=== PATIENT | female | born 1930 | race Caucasian/White ===

== ENCOUNTER 2017-04-12 21:49 | Inpatient (IN) | payer MEDICARE ==
[2017-04-12] MEDS ORDERED: ASPIRIN 81 MG PO STA (22:29)
[2017-04-12 22:47] LABS: Basophils % (A) 0 %; CH 29.8; CHCM 33.7; Eosinophils % (A) 0 %; HCT 35.1 % (34.0-46.0); HDW 2.27; HGB 11.7 gm/dL (11.4-16.0); Luc # (Auto) 0.28; Luc % (Auto) 3; Lymphocytes # (A) 1.4 k/uL (1.0-4.8); Lymphocytes % (A) 16 %; MCH 29.6 pg (25.0-35.0); MCHC 33.4 g/dL (31.0-37.0); MCV 88.8 fL (80.0-100.0); Mean Platelet Volume 8.2; Monocytes # (A) 0.6 k/uL (0-1.0); Monocytes % (A) 7 %; Neutrophils # (A) 6.6 k/uL (1.3-7.7); Neutrophils % (A) 74 %; RBC 3.95 m/uL (3.80-5.40); RDW 15.8 % (11.5-15.5)
--- NOTE | 2017-04-12 22:49 | ED ---
General Adult HPI - General Chief complaint: Chest Pain Stated complaint: chest pain Time Seen by Provider: 04/12/17 22:04 Source: patient, family, RN notes reviewed, old records reviewed Mode of arrival: ambulatory Limitations: no limitations - History of Present Illness Initial comments: 87-year-old female with history of hypertension, A. fib, CAD presents with anterior chest pain. Pain does not radiate, however she does feel some intermittent pain in her bilateral shoulders. Patient has developed intermittent substernal chest tightness and pain over the past several days. She also reports decreased exercise tolerance and some shortness of breath. Patient was seen by her prosthetist on Saturday of this week, according to the patient at that time there was discussion of the possibility for repeat heart catheterization. She denies vomiting, admits she did have some nausea with this episode. Her pain is currently resolved. Denies diaphoresis. Reports fatigue which is been progressing for several weeks. Patient took 80 mg of aspirin and 3 nitroglycerin at home. Nitroglycerin was approximately 2 hours prior to arrival, she reports minimal relief with nitroglycerin. - Related Data Home Medications Medication Instructions Recorded Confirmed Artificial Tears-Hypromellose 1 drops BOTH EYES TID PRN 04/12/17 04/12/17 [Artificial Tear Drops] Aspirin EC [Ecotrin Low Dose] 81 mg PO DAILY 04/12/17 04/12/17 Atorvastatin [Lipitor] 20 mg PO DAILY 04/12/17 04/12/17 Benazepril HCl 40 mg PO DAILY 04/12/17 04/12/17 Calcium Carbonate [Calcium] 600 mg PO BID 04/12/17 04/12/17 Cholecalciferol [Vitamin D3] 1,000 unit PO BID 04/12/17 04/12/17 Edoxaban Tosylate [Savaysa] 30 mg PO DAILY 04/12/17 04/12/17 L.acidoph,Paracasei, B.lactis 1 cap PO DAILY 04/12/17 04/12/17 [Probiotic] Loperamide [Imodium] 2 mg PO QID PRN 04/12/17 04/12/17 Magnesium Oxide [Mag-Ox] 500 mg PO DAILY 04/12/17 04/12/17 Multivitamins, Thera [Multivitamin 1 tab PO DAILY 04/12/17 04/12/17 (formulary)] Nitroglycerin Sl Tabs [Nitrostat] 0.4 mg SUBLINGUAL Q5M PRN 04/12/17 04/12/17 amLODIPine [Norvasc] 5 mg PO DAILY 04/12/17 04/12/17 Allergies Allergy/AdvReac Type Severity Reaction Status Date / Time Penicillins AdvReac HEADACHES Verified 04/12/17 22:36 Review of Systems ROS Statement: Those systems with pertinent positive or pertinent negative responses have been documented in the HPI. ROS Other: All systems not noted in ROS Statement are negative. Past Medical History Past Medical History: Atrial Fibrillation, Coronary Artery Disease (CAD), Hypertension Past Surgical History: Heart Catheterization With Stent, Hernia Repair, Hysterectomy Past Psychological History: No Psychological Hx Reported Smoking Status: Never smoker Past Alcohol Use History: None Reported Past Drug Use History: None Reported General Exam Limitations: no limitations General appearance: alert, in no apparent distress Head exam: Present: atraumatic, normocephalic Eye exam: Present: normal appearance, PERRL ENT exam: Present: normal exam, mucous membranes moist Neck exam: Present: normal inspection Respiratory exam: Present: normal lung sounds bilaterally. Absent: respiratory distress, wheezes, rales Cardiovascular Exam: Present: regular rate, irregular rhythm GI/Abdominal exam: Present: soft. Absent: distended, tenderness Extremities exam: Present: normal inspection, normal capillary refill. Absent: pedal edema Neurological exam: Present: alert, oriented X3, CN II-XII intact. Absent: motor sensory deficit Psychiatric exam: Present: normal affect, normal mood Skin exam: Present: warm, dry, intact. Absent: cyanosis, diaphoretic Course Vital Signs 04/12/17 04/13/17 04/13/17 21:55 00:10 00:12 Temperature 98.3 F 98.4 F Pulse Rate 84 80 90 Respiratory 20 18 18 Rate Blood Pressure 140/73 118/64 121/58 O2 Sat by Pulse 95 92 L 94 L Oximetry EKG Findings - EKG Comments: EKG Findings:: EKG atrial fibrillation, right bundle branch block, left posterior fascicular block, ventricular rate 99, QRS duration 110, QTC [address] segment elevation Medical Decision Making - Medical Decision Making 87-year-old female presenting with chief complaint of chest pain over the past several days. She is chest pain-free in the emergency department. She does have a history of CAD status post stenting. She also reports worsening exertional dyspnea. Chest x-ray was obtained, shows concern for lower lobe pneumonia. Patient states she has been dealing with pneumonia for the past several months. She is afebrile, no elevated white blood cell count. She does have bilateral pleural effusions. I have concern that this may be new onset heart failure. EKG shows atrial fibrillation with right bundle-branch block as well as left posterior fascicular block, there is T-wave inversion in leads 3 and aVF. No recent old EKG for comparison is available. Patient is given aspirin and Lasix in the emergency department. She remains asymptomatic during the time of my evaluation. Patient states she did have a heart cath in October, no intervention done at that time. This was done at outside hospital. Diagnosis: Chest pain, concern for new onset heart failure, bilateral pleural effusions - Lab Data Result diagrams: 04/12/17 22:14 04/12/17 22:14 Lab Results 04/12/17 04/12/17 04/12/17 Range/Units 22:14 22:14 22:14 WBC 9.0 (3.8-10.6) k/uL RBC 3.95 (3.80-5.40) m/uL Hgb 11.7 (11.4-16.0) gm/dL Hct 35.1 (34.0-46.0) % MCV 88.8 (80.0-100.0) fL MCH 29.6 (25.0-35.0) pg MCHC 33.4 (31.0-37.0) g/dL RDW 15.8 H (11.5-15.5) % Plt Count 225 (150-450) k/uL Neutrophils % 74 % Lymphocytes % 16 % Monocytes % 7 % Eosinophils % 0 % Basophils % 0 % Neutrophils # 6.6 (1.3-7.7) k/uL Lymphocytes # 1.4 (1.0-4.8) k/uL Monocytes # 0.6 (0-1.0) k/uL Eosinophils # 0.0 (0-0.7) k/uL Basophils # 0.0 (0-0.2) k/uL PT (9.0-12.0) sec INR (<1.2) APTT (22.0-30.0) sec Sodium 136 L (137-145) mmol/L Potassium 4.8 (3.5-5.1) mmol/L Chloride 103 (98-107) mmol/L Carbon Dioxide 24 (22-30) mmol/L Anion Gap 9 mmol/L BUN 18 H (7-17) mg/dL Creatinine 0.87 (0.52-1.04) mg/dL Est GFR (MDRD) Af Amer >60 (>60 ml/min/1.73 sqM) Est GFR (MDRD) Non-Af >60 (>60 ml/min/1.73 sqM) Glucose 100 H (74-99) mg/dL Calcium 8.8 (8.4-10.2) mg/dL Magnesium 1.9 (1.6-2.3) mg/dL Total Bilirubin 0.5 (0.2-1.3) mg/dL AST 37 H (14-36) U/L ALT 31 (9-52) U/L Alkaline Phosphatase 52 (38-126) U/L Total Creatine Kinase 37 (30-135) U/L CK-MB (CK-2) 0.5 (0.0-2.4) ng/mL CK-MB (CK-2) Rel Index 1.4 Troponin I <0.012 (0.000-0.034) ng/mL NT-Pro-B Natriuret Pep pg/mL Total Protein 6.8 (6.3-8.2) g/dL Albumin 3.6 (3.5-5.0) g/dL 04/12/17 04/12/17 Range/Units 22:14 22:14 WBC (3.8-10.6) k/uL RBC (3.80-5.40) m/uL Hgb (11.4-16.0) gm/dL Hct (34.0-46.0) % MCV (80.0-100.0) fL MCH (25.0-35.0) pg MCHC (31.0-37.0) g/dL RDW (11.5-15.5) % Plt Count (150-450) k/uL Neutrophils % % Lymphocytes % % Monocytes % % Eosinophils % % Basophils % % Neutrophils # (1.3-7.7) k/uL Lymphocytes # (1.0-4.8) k/uL Monocytes # (0-1.0) k/uL Eosinophils # (0-0.7) k/uL Basophils # (0-0.2) k/uL PT 13.7 H (9.0-12.0) sec INR 1.4 H (<1.2) APTT 24.4 (22.0-30.0) sec Sodium (137-145) mmol/L Potassium (3.5-5.1) mmol/L Chloride (98-107) mmol/L Carbon Dioxide (22-30) mmol/L Anion Gap mmol/L BUN (7-17) mg/dL Creatinine (0.52-1.04) mg/dL Est GFR (MDRD) Af Amer (>60 ml/min/1.73 sqM) Est GFR (MDRD) Non-Af (>60 ml/min/1.73 sqM) Glucose (74-99) mg/dL Calcium (8.4-10.2) mg/dL Magnesium (1.6-2.3) mg/dL Total Bilirubin (0.2-1.3) mg/dL AST (14-36) U/L ALT (9-52) U/L Alkaline Phosphatase (38-126) U/L Total Creatine Kinase (30-135) U/L CK-MB (CK-2) (0.0-2.4) ng/mL CK-MB (CK-2) Rel Index Troponin I (0.000-0.034) ng/mL NT-Pro-B Natriuret Pep 1380 pg/mL Total Protein (6.3-8.2) g/dL Albumin (3.5-5.0) g/dL Disposition Clinical Impression: Chest pain, New onset of congestive heart failure Disposition: ADMITTED IP TO THIS [facility] Condition: Stable Referrals: Bertrand Giron MD [Primary Care Provider] - 1-2 days Decision to Admit Reason: Admit from EC Decision Date: 04/13/17 Decision Time: 00:32
[2017-04-12 22:58] LABS: Partial Thromboplastin Time 24.4 sec (22.0-30.0)
[2017-04-12 22:59] LABS: ALT 31 U/L (9-52); AST 37 U/L (14-36); Alkaline Phosphatase 52 U/L (38-126); Anion Gap 9 mmol/L; Blood Urea Nitrogen 18 mg/dL (7-17); Calcium 8.8 mg/dL (8.4-10.2); Carbon Dioxide 24 mmol/L (22-30); Chloride 103 mmol/L (98-107); Glucose 100 mg/dL (74-99); Magnesium 1.9 mg/dL (1.6-2.3); Non-African American GFR(MDRD) >60 (>60 ml/min/1.73 sqM); Potassium 4.8 mmol/L (3.5-5.1); Sodium 136 mmol/L (137-145); Total Bilirubin 0.5 mg/dL (0.2-1.3); Total Protein 6.8 g/dL (6.3-8.2)
[2017-04-12 23:07] LABS: Creatine Kinase 37 U/L (30-135)
[2017-04-12 23:08] LABS: INR 1.4 (<1.2); Prothrombin Time 13.7 sec (9.0-12.0)
--- NOTE | 2017-04-12 23:10 | XR ---
EXAM: XR Chest, 2 Views CLINICAL HISTORY: Reason: Chest Pain TECHNIQUE: Frontal and lateral views of the chest. COMPARISON: No relevant prior studies available. FINDINGS: Lungs: Patchy left base infiltrates. Pleural space: Possible small left pleural effusion. No pneumothorax. Heart: Mild cardiomegaly. Mediastinum: Unremarkable. Bones/joints: Rightward curvature of the thoracic spine. IMPRESSION: Patchy left base infiltrates may be due to bronchopneumonia or subsegmental atelectasis. Correlate clinically. Small left pleural effusion not excluded.
[2017-04-12 23:21] LABS: Creatine Kinase MB 0.5 ng/mL (0.0-2.4); Troponin I <0.012 ng/mL (0.000-0.034)
[2017-04-12] MEDS ORDERED: FUROSEMIDE 10 MG/ML 4 ML VIAL IV ONE (23:59)
[2017-04-13 01:54] VITALS: BMI 23.6
[2017-04-13 04:53] LABS: Creatine Kinase MB 0.4 ng/mL (0.0-2.4); Troponin I <0.012 ng/mL (0.000-0.034)
[2017-04-13] MEDS ORDERED: RX INFO: IV CONTRAST WAS GIVEN 1 EACH MISC MISCELLANE PRN (08:58)
[2017-04-13] MEDS: FUROSEMIDE 40 MG TAB PO SCH ×2 (09:41→20:14)
[2017-04-13 10:31] LABS: Creatine Kinase MB 0.4 ng/mL (0.0-2.4); Troponin I <0.012 ng/mL (0.000-0.034)
--- NOTE | 2017-04-13 10:35 | HP ---
HISTORY AND PHYSICAL CHIEF COMPLAINT: Chest tightness. HISTORY OF PRESENT ILLNESS: This is an 87-year-old female with past medical history significant for coronary artery disease, stent placement in 2008, presents to the hospital with chest tightness. The patient stated that chest tightness has been happening for the last 2 months and patient noticed some shortness of breath with excessive activities as patient is a very active at home, independent in all her daily activities. Patient denied any releasing factors. Denied any relation between pain and positions or taking deep breath. Patient denied any radiation to the left neck, left arm or left jaw. Patient stated that the pain is constant, got worse in the last 2 days and especially with the shortness of breath on excessive activities and stated that she still can do all her daily activity without having shortness of breath and less likely when she exerts herself. Patient denied any recent change in her medication, but stated that since October, she was diagnosed with pneumonia 3 times, was treated with prolonged course of antibiotics. Most recent was 3 weeks ago. Patient had the significant improvement according to her story and stated that she her cough has improved and has been coughing less, still yellow phlegm, but patient thinks that her energy level went back to the normal after her prolonged course of antibiotics. Patient denied any weight loss, night sweats or low-grade fever. Said that she has been very healthy. Compliance with her medication and doctor's followup and denied tobacco, alcohol, or drug abuse. ALLERGIES: PENICILLIN with headache. HOME MEDICATION: 1. Aspirin daily. 2. Artificial Tears as needed. 3. Lipitor 20 mg daily. 4. Benazepril 40 mg daily. 5. Calcium twice daily. 6. Vitamin D twice daily. 7. Probiotic daily. 8. Loperamide as needed for diarrhea. 9. Mag oxide. 10.Multivitamin. 11.Nitroglycerin as needed. 12.Amlodipine 5 mg daily. REVIEW OF SYSTEMS: All 14 systems reviewed and negative, except as above. PAST MEDICAL AND SURGICAL HISTORY: 1. Coronary artery disease, status post stent placement 2008. 2. Hypertension. 3. Hyperlipidemia. 4. Vitamin D deficiency. 5. Cardiac catheterization. 6. Hernia repair. 7. Hysterectomy. SOCIAL HISTORY: Denies tobacco, alcohol, or drug abuse. Stated that she is independent, lives in own trailer and stated that she has been very active, working outdoors. PHYSICAL EXAM: Vital signs 98.4, 90, 18, 121/58, and saturation of 94% on room air. GENERAL: In her stated age, no acute distress. HEENT: Atraumatic, normocephalic, PERRLA. LUNGS: Clear to auscultation bilaterally. HEART: Normal S1, S2. Next. ABDOMEN: Soft, nontender. Bowel sounds in all 4 quadrants. LOWER EXTREMITY: No edema. PSYCH: Alert, oriented x3. SKIN: No rash. IMAGING/LABS: CBC revealed normal finding. Chemistry revealed sodium 136, normal otherwise. Troponin was negative x3. Liver function tests within acceptable range. INR slightly elevated at 1.4, normal PTT. BNP was elevated at 1380. ASSESSMENT AND PLAN: 1. Chest tightness, seems to be mixed etiology, which can include but not limited. 2. History of coronary artery disease associated with most recent worsening and shortness of breath and congestive heart failure exacerbation complicated with recent pneumonia and recurrent pneumonia x3 for the last 6 months. I would like to identify each problem and keep patient is the hospital, start patient on a gentle dose of diuretics. Continue cardioprotective medication. Consider starting patient on a beta angie per Cardiology recommendation on outpatient basis. Also, I would like to obtain a CT scan of the chest to rule out any underlying malignancy, given the fact of the last 3 episodes of pneumonia in 5 months. I would like to optimize her medical management and consider discharging patient once the workup is done and evaluated by Cardiology, who was consulted by the ER physician. Also, I would like to obtain a 2D echo to rule out any wall motion abnormality. 3. Hypertension, seems to be under fair control. Continue her home medication. 4. Vitamin D deficiency. Continue with the current supplement. 5. Recurrent pneumonia. Management as above. 6. Discharge planning based on clinical progress. MMODL / IJN: [id number] /
--- NOTE | 2017-04-13 11:04 | P.CRDCN ---
History of Present Illness Consult date: 04/13/17 Chief complaint: Chest discomfort History of present illness: This is a pleasant 87-year-old female patient who sees Dr. Bryant in as an outpatient with a past medical history significant for CAD with prior stenting with unknown details at this point, chronic atrial fibrillation, hypertension, dyslipidemia, presented to the hospital complaining of chest discomfort. The patient was in her usual state of health until about 3 days ago when she started experiencing ongoing chest discomfort. Its a pressure across the chest without any radiation and without any associated symptoms. She tried nitroglycerin yesterday without improvement and then she was referred to come to the emergency room. The EKG showed atrial fibrillation. The cardiac enzymes were checked and came in to be unremarkable. The patient just underwent a computed tomography scan of the chest. We will follow-up with that. Past Medical History Past Medical History: Atrial Fibrillation, Coronary Artery Disease (CAD), Hypertension History of Any Multi-Drug Resistant Organisms: None Reported Past Surgical History: Heart Catheterization With Stent, Hernia Repair, Hysterectomy Past Anesthesia/Blood Transfusion Reactions: No Reported Reaction Date of Last Stent Placement:: 2007 Past Psychological History: No Psychological Hx Reported Smoking Status: Never smoker Past Alcohol Use History: None Reported Past Drug Use History: None Reported - Past Family History Mother Family Medical History: Congestive Heart Failure (CHF) Father Family Medical History: Cancer Additional Family Medical History / Comment(s): prostate cancer Medications and Allergies Home Medications Medication Instructions Recorded Confirmed Type Artificial Tears-Hypromellose 1 drops BOTH EYES TID PRN 04/12/17 04/12/17 History [Artificial Tear Drops] Aspirin EC [Ecotrin Low Dose] 81 mg PO DAILY 04/12/17 04/12/17 History Atorvastatin [Lipitor] 20 mg PO DAILY 04/12/17 04/12/17 History Benazepril HCl 40 mg PO DAILY 04/12/17 04/12/17 History Calcium Carbonate [Calcium] 600 mg PO BID 04/12/17 04/12/17 History Cholecalciferol [Vitamin D3] 1,000 unit PO BID 04/12/17 04/12/17 History Edoxaban Tosylate [Savaysa] 30 mg PO DAILY 04/12/17 04/12/17 History L.acidoph,Paracasei, B.lactis 1 cap PO DAILY 04/12/17 04/12/17 History [Probiotic] Loperamide [Imodium] 2 mg PO QID PRN 04/12/17 04/12/17 History Magnesium Oxide [Mag-Ox] 500 mg PO DAILY 04/12/17 04/12/17 History Multivitamins, Thera [Multivitamin 1 tab PO DAILY 04/12/17 04/12/17 History (formulary)] Nitroglycerin Sl Tabs [Nitrostat] 0.4 mg SUBLINGUAL Q5M PRN 04/12/17 04/12/17 History amLODIPine [Norvasc] 5 mg PO DAILY 04/12/17 04/12/17 History Allergies Allergy/AdvReac Type Severity Reaction Status Date / Time Penicillins AdvReac HEADACHES Verified 04/12/17 22:36 Physical Exam Vitals: Vital Signs Temp Pulse Pulse Resp BP BP Pulse Ox 04/13/17 08:54 94 L 04/13/17 08:00 98.1 F 74 16 115/55 94 L 04/13/17 04:00 96.8 F L 80 18 114/60 97 04/13/17 01:45 97.6 F 90 18 119/68 94 L 04/13/17 01:20 97.6 F 90 18 119/68 95 04/13/17 00:12 98.4 F 90 18 121/58 94 L 04/13/17 00:10 80 18 118/64 92 L 04/12/17 21:55 98.3 F 84 20 140/73 95 Intake and Output 04/12/17 04/13/17 04/13/17 22:59 06:59 14:59 Output Total 300 Balance -300 Output: Urine 300 Other: Weight 58.967 kg 62.6 kg 62.6 kg Patient Weight 04/14/17 06:59 Weight 62.6 kg - Constitutional General appearance: no acute distress - Respiratory Respiratory: bilateral: CTA - Cardiovascular Rhythm: irregularly irregular Heart sounds: normal: S1, S2 Abnormal Heart Sounds: systolic murmur Results 04/12/17 22:14 04/12/17 22:14 Cardiac Enzymes 04/12/17 04/12/17 04/13/17 Range/Units 22:14 22:14 03:41 AST 37 H (14-36) U/L CK-MB (CK-2) 0.5 0.4 (0.0-2.4) ng/mL Troponin I <0.012 <0.012 (0.000-0.034) ng/mL 04/13/17 Range/Units 09:42 AST (14-36) U/L CK-MB (CK-2) 0.4 (0.0-2.4) ng/mL Troponin I <0.012 (0.000-0.034) ng/mL Coagulation 04/12/17 Range/Units 22:14 PT 13.7 H (9.0-12.0) sec APTT 24.4 (22.0-30.0) sec CBC 04/12/17 Range/Units 22:14 WBC 9.0 (3.8-10.6) k/uL RBC 3.95 (3.80-5.40) m/uL Hgb 11.7 (11.4-16.0) gm/dL Hct 35.1 (34.0-46.0) % Plt Count 225 (150-450) k/uL Comprehensive Metabolic Panel 04/12/17 Range/Units 22:14 Sodium 136 L (137-145) mmol/L Potassium 4.8 (3.5-5.1) mmol/L Chloride 103 (98-107) mmol/L Carbon Dioxide 24 (22-30) mmol/L BUN 18 H (7-17) mg/dL Creatinine 0.87 (0.52-1.04) mg/dL Glucose 100 H (74-99) mg/dL Calcium 8.8 (8.4-10.2) mg/dL AST 37 H (14-36) U/L ALT 31 (9-52) U/L Alkaline Phosphatase 52 (38-126) U/L Total Protein 6.8 (6.3-8.2) g/dL Albumin 3.6 (3.5-5.0) g/dL Current Medications Generic Name Dose Route Start Last Admin Trade Name Freq PRN Reason Stop Dose Admin Aspirin 325 mg 04/14/17 00:28 04/13/17 09:42 Aspirin PO 325 mg DAILY IGGY Administration Furosemide 20 mg 04/13/17 09:00 04/13/17 09:41 Lasix PO 20 mg Q12HR IGGY Administration Miscellaneous Information 1 each 04/13/17 08:58 Rx Info: Iv Contrast Was Given MISCELLANE 04/15/17 08:59 DAILY PRN Per Protocol Intake and Output 04/12/17 04/13/17 04/13/17 22:59 06:59 14:59 Output Total 300 Balance -300 Output: Urine 300 Other: Weight 58.967 kg 62.6 kg 62.6 kg Patient Weight 04/14/17 06:59 Weight 62.6 kg 04/12/17 22:14 04/12/17 22:14 Assessment and Plan Plan: This is a pleasant 87-year-old female patient with known CAD and prior stenting as well as chronic A. fib and multiple comorbid conditions was admitted to the hospital with chest discomfort. The patient was ruled out for acute coronary event at this point. We will rule out any vascular/pulmonary etiology with a computed tomography scan which was performed and we don't have the results on at this point. If the patient continues to have chest discomfort I would consider proceeding with heart catheterization to rule out any severe underlying CAD. I would consider that after we get the results of the CAT scan
--- NOTE | 2017-04-13 11:57 | CT ---
EXAMINATION TYPE: CT chest w con DATE OF EXAM: 04/13/2017 COMPARISON: NONE HISTORY: Recurrent pneumonia CT DLP: 262.80 mGycm Automated exposure control for dose reduction was used. CONTRAST: CT scan of the chest is performed with IV Contrast, patient injected with 100 ml mL of Omnipaque 300. FINDINGS: LUNGS: There is bilateral apical scarring. There is bibasilar airspace disease, worse on the left jumana n the right. There is a small left-sided effusion. There is no significant axillary, internal mammary, mediastinal or hilar adenopathy. The heart is grossly enlarged. There is no pericardial fluid. There is a moderate-sized hiatal hernia. There is a simple appearing, 1.3 cm cyst in the upper pole of the left kidney and a 1.4 cm, simple ap pearing cyst in the mid polar region of the left kidney. Visualized portions of the upper abdomen are otherwise unremarkable. There is a dextroscoliosis present. There is mild hypertrophic spondylosis. IMPRESSION: 1. BIBASILAR AIRSPACE DISEASE, WORSE IN THE LEFT THAN THE RIGHT. 2. SMALL LEFT EFFUSION. 3. MULTICHAMBER CARDIAC ENLARGEMENT. 4. SIMPLE APPEARING, LEFT RENAL CYST. 5. DEXTROSCOLIOSIS. 6. MILD DEGENERATIVE CHANGE IN THE SPINE.
--- NOTE | 2017-04-13 13:35 | ECHOF ---
Referral Reason:Heart Failure MEASUREMENTS -------- HEIGHT: 162.6 cm WEIGHT: 59.0 kg BP: 114/60 RVIDd: 2.4 cm (< 3.3) IVSd: 1.1 cm (0.6 - 1.1) LVIDd: 4.1 cm (3.9 - 5.3) LVPWd: 1.1 cm (0.6 - 1.1) IVSs: 1.5 cm LVIDs: 2.9 cm LVPWs: 1.3 cm LAESV Index (A-L): 52.30 ml/m Ao Diam: 3.2 cm (2.0 - 3.7) AV Cusp: 1.8 cm (1.5 - 2.6) LA Diam: 4.3 cm (2.7 - 3.8) MV EXCURSION: 13.991 mm (> 18.000) MV EF SLOPE: 52 mm/s (70 - 150) EPSS: 0.9 cm MV E Logan: 0.98 m/s MV DecT: 256 ms MV A Logan: 0.00 m/s MV E/A Ratio: 958.74 AR PHT: 667 ms RAP: 5.00 mmHg RVSP: 30.28 mmHg FINDINGS -------- Atrial fibrillation. This was a technically adequate study. The left ventricular size is normal. Left ventricular wall thickness is normal. Overall left ventricular systolic function is normal with, an EF between 60 - 65 %. The right ventricle is normal in size and function. LA is severely dilated >40 ml/m2 The right atrium is moderately enlarged. Aortic valve is trileaflet and is mildly thickened. There is mild aortic regurgitation. There is mild aortic stenosis present. The mitral valve leaflets are mildly thickened. [id number] mitral regurgitation is present. Trace tricuspid regurgitation present. Right ventricular systolic pressure is normal at < 35 mmHg. There is no evidence of pulmonary hypertension. Trace/mild (physiologic) pulmonic regurgitation. The aortic root size is normal. The IVC is dilated with normal collapse. The pericardium is normal. There is no pericardial effusion. CONCLUSIONS -------- 1. Atrial fibrillation. 2. The mitral valve leaflets are mildly thickened. 3. [id number] mitral regurgitation is present. 4. Trace tricuspid regurgitation present. 5. Right ventricular systolic pressure is normal at < 35 mmHg. 6. There is no evidence of pulmonary hypertension. 7. Trace/mild (physiologic) pulmonic regurgitation. 8. The aortic root size is normal. 9. The IVC is dilated with normal collapse. 10. This was a technically adequate study. 11. The left ventricular size is normal. 12. Overall left ventricular systolic function is normal with, an EF between 60 - 65 %. 13. LA is severely dilated >40 ml/m2 14. The right atrium is moderately enlarged. 15. Aortic valve is trileaflet and is mildly thickened. 16. There is mild aortic regurgitation. 17. There is mild aortic stenosis present. SECONDARY HISTORY TEACHER: Mainor Shin RDCS
[2017-04-13] MEDS ORDERED: LOPERAMIDE 2 MG CAP PO PRN (17:30)
[2017-04-13] MEDS ORDERED: ARTIFICIAL TEARS-HYPROMELLOSE DROPS 15 ML BTL BOTH EYES PRN (17:30)
[2017-04-13] MEDS: CHOLECALCIFEROL 1,000 UNIT TAB PO SCH (18:32)
[2017-04-13] MEDS: amLODIPine 5 MG TAB PO SCH (18:32)
[2017-04-13] MEDS: EDOXABAN TOSYLATE 30 MG TABLET PO SCH (18:32)
[2017-04-13] MEDS: CALCIUM CARBONATE 500 MG CHEWABLE PO SCH (18:34)
[2017-04-14] MEDS ORDERED: ASPIRIN 325 MG TAB PO SCH (00:28)
[2017-04-14 01:44] VITALS: RESP 18
[2017-04-14 04:21] VITALS: TEMP 97.1
[2017-04-14] MEDS ORDERED: MAGNESIUM OXIDE 400 MG TAB PO SCH (09:00)
[2017-04-14] MEDS ORDERED: ATORVASTATIN 20 MG TAB PO SCH (09:00)
[2017-04-14] MEDS ORDERED: LISINOPRIL 20 MG TAB PO SCH (09:00)
[2017-04-14] MEDS ORDERED: LACTOBACILLUS ACIDOPH & BULGAR 1 EACH PACKET PO SCH (09:00)
[2017-04-14] MEDS ORDERED: ASPIRIN 81 MG PO SCH (09:00)
[2017-04-14] MEDS: CALCIUM CARBONATE 500 MG CHEWABLE PO SCH (09:27)
[2017-04-14] MEDS: amLODIPine 5 MG TAB PO SCH (09:27)
[2017-04-14] MEDS: CHOLECALCIFEROL 1,000 UNIT TAB PO SCH (09:27)
[2017-04-14] MEDS: EDOXABAN TOSYLATE 30 MG TABLET PO SCH (09:29)
[2017-04-14] MEDS: FUROSEMIDE 40 MG TAB PO SCH (09:29)
[2017-04-14 09:41] VITALS: BP 120/56; PULSE 86
--- NOTE | 2017-04-14 11:45 | P.PN ---
Progress Note - Text This is a pleasant 87-year-old female patient who sees Dr. Kang in as an outpatient with a past medical history significant for CAD with prior stenting with unknown details at this point, chronic atrial fibrillation, hypertension, dyslipidemia, presented to the hospital complaining of chest discomfort. The patient was in her usual state of health until about 3 days ago when she started experiencing ongoing chest discomfort. Its a pressure across the chest without any radiation and without any associated symptoms. She tried nitroglycerin yesterday without improvement and then she was referred to come to the emergency room. The EKG showed atrial fibrillation. The cardiac enzymes were checked and came in to be unremarkable. Since admission the patient has been pain free. She underwent a heart catheterization in December 2016 and that showed only intermediate coronary artery disease. From the cardiovascular standpoint of view, the patient can be discharged home
--- NOTE | 2017-04-14 11:51 | DS ---
DISCHARGE SUMMARY ADMISSION DIAGNOSES: 1. Chest tightness. 2. Recurrent pneumonia. 3. Coronary artery disease. 4. Hypertension. 5. Vitamin D deficiency. DISCHARGE DIAGNOSES: 1. Chest tightness, improved, likely related to spasm. 2. Recurrent pneumonia. CT scan was done and showed minimal finding not significant for any malignancy or any ongoing pathology. HOSPITAL COURSE: This is an 87-year-old female with past medical history significant for coronary artery disease and stent placement 9 years ago, presents to the hospital with chest tightness. Initial troponin and EKG showed normal finding. The patient was admitted for observation and cardiology evaluation, who noted that last cardiac catheterization was done in December and showed minimum disease. The patient felt stable from the cardiac standpoint, but given the fact of recurrent pneumonia CT scan with contrast was ordered, which showed some atelectasis and chronic changes indicating any reason for her recurrent pneumonia. Patient asked to follow up with her primary care physician closely and felt stable from the medical standpoint. Patient agreeable to the current treatment plan and plan discussed with Dr. Sanabria, who agreed to the current discharge process. The patient was discharged in stable condition. Discharge process took 35 minutes. STARR / LUCHON: [id number] /
[2017-04-14] MEDS ORDERED: MULTIVITAMINS, THERA 1 EACH TAB PO SCH (12:00)
== END 2017-04-14 11:48 | disposition home or self-care (01) | DRG 313 ==
LOC: EC 21:49 → 6SEL 04-13 00:26
PROVIDERS: ADMIT Internal Medicine; ATTEND Internal Medicine
DX: R07.89 Other chest pain (principal); I25.10 Atherosclerotic heart disease of native coronary artery without angina pectoris; J90 Pleural effusion, not elsewhere classified; I50.9 Heart failure, unspecified; I48.2 Chronic atrial fibrillation; I11.0 Hypertensive heart disease with heart failure; J98.11 Atelectasis; I45.10 Unspecified right bundle-branch block; E78.5 Hyperlipidemia, unspecified; E55.9 Vitamin D deficiency, unspecified; Z87.01 Personal history of pneumonia (recurrent); Z95.5 Presence of coronary angioplasty implant and graft; Z79.82 Long term (current) use of aspirin; Z79.899 Other long term (current) drug therapy; Z82.49 Family history of ischemic heart disease and other diseases of the circulatory system; Z88.0 Allergy status to penicillin; Z90.710 Acquired absence of both cervix and uterus; Z87.19 Personal history of other diseases of the digestive system
CPT/HCPCS: 36415; 71020; 71260; 80053; 82550; 82553; 83735; 83880; 84484; 85025; 85610; 85730; 93005; 93306; 94760; 96374; 99285

== ENCOUNTER 2018-10-06 12:07 | Observation (INO) | payer MEDICARE ==
[2018-10-06] MEDS ORDERED: SODIUM CHLORIDE 0.9% 1,000 ML IV STA (12:46)
--- NOTE | 2018-10-06 12:49 | ED ---
SOB HPI - General Chief Complaint: Shortness of Breath Stated Complaint: SOB, LETHARGY Time Seen by Provider: 10/06/18 12:30 Source: patient, RN notes reviewed Mode of arrival: ambulatory Limitations: no limitations - History of Present Illness Initial Comments: This 88-year-old female with a history of a cardiac stents about 10 years ago states that recently over last week or so she's had shortness of breath exertional of any type and seems to be getting progressively worse he has a small spot chest pain and right anterior mid chest just lateral to the sternum that is reproducible she pushes on it. No cough no fevers chills nausea vomiting sweats or other symptoms. MD Complaint: shortness of breath, chest pain - Related Data Home Medications Medication Instructions Recorded Confirmed Artificial Tears-Hypromellose 1 drops BOTH EYES TID PRN 04/12/17 10/06/18 [Artificial Tear Drops] Aspirin EC [Ecotrin Low Dose] 81 mg PO DAILY 04/12/17 10/06/18 Atorvastatin [Lipitor] 20 mg PO DAILY 04/12/17 10/06/18 Benazepril HCl 40 mg PO DAILY 04/12/17 10/06/18 Calcium Carbonate [Calcium] 600 mg PO BID 04/12/17 10/06/18 Cholecalciferol [Vitamin D3] 5,000 unit PO DAILY 04/12/17 10/06/18 Edoxaban Tosylate [Savaysa] 30 mg PO DAILY 04/12/17 10/06/18 Loperamide [Imodium] 2 mg PO QID PRN 04/12/17 10/06/18 Magnesium Oxide [Mag-Ox] 500 mg PO DAILY 04/12/17 10/06/18 Multivitamins, Thera [Multivitamin 1 tab PO DAILY 04/12/17 10/06/18 (formulary)] Nitroglycerin Sl Tabs [Nitrostat] 0.4 mg SUBLINGUAL Q5M PRN 04/12/17 10/06/18 amLODIPine [Norvasc] 5 mg PO DAILY 04/12/17 10/06/18 Metoprolol Tartrate [Lopressor] 12.5 mg PO DAILY 10/06/18 10/06/18 Vitamin B Complex 1 cap PO DAILY 10/06/18 10/06/18 Vitamin C/Biotin [Hair, Skin and 1 tab PO DAILY 10/06/18 10/06/18 Nails] Allergies Allergy/AdvReac Type Severity Reaction Status Date / Time Penicillins AdvReac HEADACHES Verified 10/06/18 12:50 Review of Systems ROS Statement: Those systems with pertinent positive or pertinent negative responses have been documented in the HPI. ROS Other: All systems not noted in ROS Statement are negative. Past Medical History Past Medical History: Atrial Fibrillation, Coronary Artery Disease (CAD), Hypertension History of Any Multi-Drug Resistant Organisms: None Reported Past Surgical History: Heart Catheterization With Stent, Hernia Repair, Hysterectomy Past Anesthesia/Blood Transfusion Reactions: No Reported Reaction Date of Last Stent Placement:: 2007 Past Psychological History: No Psychological Hx Reported Smoking Status: Never smoker Past Alcohol Use History: None Reported Past Drug Use History: None Reported - Past Family History Mother Family Medical History: Congestive Heart Failure (CHF) Father Family Medical History: Cancer Additional Family Medical History / Comment(s): prostate cancer General Exam - General Exam Comments Initial Comments: This is a well-developed well-nourished awake alert oriented 3 female Limitations: no limitations General appearance: alert, in no apparent distress Head exam: Present: atraumatic, normocephalic, normal inspection Eye exam: Present: normal appearance, PERRL, EOMI. Absent: scleral icterus, conjunctival injection, periorbital swelling ENT exam: Present: normal exam, mucous membranes moist Neck exam: Present: normal inspection, full ROM, other (No stridor JVD or bruits). Absent: tenderness, meningismus, lymphadenopathy Respiratory exam: Present: normal lung sounds bilaterally, chest wall tenderness (Tenderness palpation of the area the patient points to over the right costal sternal margin and midsternal region. No step-off or crepitation). Absent: respiratory distress, wheezes, rales, rhonchi, stridor Cardiovascular Exam: Present: regular rate, normal rhythm, normal heart sounds. Absent: systolic murmur, diastolic murmur, rubs, gallop, clicks GI/Abdominal exam: Present: soft, normal bowel sounds. Absent: distended, tenderness, guarding, rebound, rigid Extremities exam: Present: normal inspection, full ROM, normal capillary refill. Absent: tenderness, pedal edema, joint swelling, calf tenderness Back exam: Present: normal inspection Neurological exam: Present: alert, oriented X3, CN II-XII intact Psychiatric exam: Present: normal affect, normal mood Skin exam: Present: warm, dry, intact, normal color. Absent: rash Course Vital Signs 10/06/18 10/06/18 10/06/18 12:23 12:43 12:50 Temperature 98.1 F Pulse Rate 59 L 59 L 56 L Respiratory 18 Rate Blood Pressure 130/66 143/78 O2 Sat by Pulse 98 98 Oximetry 10/06/18 10/06/18 10/06/18 13:00 13:10 13:20 Temperature Pulse Rate 57 L 55 L 64 Respiratory Rate Blood Pressure 143/78 127/64 127/64 O2 Sat by Pulse 98 97 98 Oximetry 10/06/18 10/06/18 10/06/18 13:30 13:40 13:50 Temperature Pulse Rate 58 L 58 L 58 L Respiratory Rate Blood Pressure 127/64 137/68 137/68 O2 Sat by Pulse 96 96 96 Oximetry 10/06/18 10/06/18 10/06/18 14:00 14:10 14:20 Temperature Pulse Rate 59 L 58 L Respiratory Rate Blood Pressure 137/68 150/75 150/75 O2 Sat by Pulse 86 L Oximetry 10/06/18 10/06/18 10/06/18 14:30 14:40 14:50 Temperature Pulse Rate 56 L 60 60 Respiratory Rate Blood Pressure 150/75 125/62 125/62 O2 Sat by Pulse 97 96 96 Oximetry 10/06/18 10/06/18 10/06/18 15:00 15:10 15:20 Temperature Pulse Rate 59 L 57 L 57 L Respiratory Rate Blood Pressure 125/62 124/64 124/64 O2 Sat by Pulse 83 L 96 99 Oximetry 10/06/18 10/06/18 10/06/18 15:30 15:40 15:50 Temperature Pulse Rate 62 58 L Respiratory Rate Blood Pressure 124/64 O2 Sat by Pulse 98 97 Oximetry - Reevaluation(s) Reevaluation #1: 10/06/18 17:12 I did discuss findings several times the patient and family members. Patient had no further chest pain and no history of all at rest. He symptomatology however is suspicious for angina/ACS. Reevaluation #2: 10/06/18 17:19 Of note cardiac monitoring was done and the patient upon arrival due to the patient complains of exertional dyspnea and chest pain. The purpose was to rule out dysrhythmia or other EKG changes. Number seen at this time. The rate was 60 upon my evaluation. Medical Decision Making - Medical Decision Making I did discuss findings with patient and family members as well as with Dr. Cooney. Patient will be admitted for evaluation of suspected ACS. No further chest pain except for the small area noted was reproducible also no further exertional issues at this time - Lab Data Result diagrams: 10/06/18 13:25 10/06/18 13:25 Lab Results 10/06/18 10/06/18 10/06/18 Range/Units 13:25 13:25 13:25 WBC 5.0 (3.8-10.6) k/uL RBC 4.33 (3.80-5.40) m/uL Hgb 12.8 (11.4-16.0) gm/dL Hct 38.8 (34.0-46.0) % MCV 89.8 (80.0-100.0) fL MCH 29.5 (25.0-35.0) pg MCHC 32.9 (31.0-37.0) g/dL RDW 13.7 (11.5-15.5) % Plt Count 203 (150-450) k/uL Neutrophils % 62 % Lymphocytes % 27 % Monocytes % 7 % Eosinophils % 1 % Basophils % 1 % Neutrophils # 3.1 (1.3-7.7) k/uL Lymphocytes # 1.3 (1.0-4.8) k/uL Monocytes # 0.4 (0-1.0) k/uL Eosinophils # 0.1 (0-0.7) k/uL Basophils # 0.0 (0-0.2) k/uL PT 14.0 H (9.0-12.0) sec INR 1.4 H (<1.2) APTT 28.7 (22.0-30.0) sec D-Dimer 0.98 H (<0.60) mg/L FEU Sodium 138 (137-145) mmol/L Potassium 4.3 (3.5-5.1) mmol/L Chloride 104 (98-107) mmol/L Carbon Dioxide 27 (22-30) mmol/L Anion Gap 7 mmol/L BUN 16 (7-17) mg/dL Creatinine 0.95 (0.52-1.04) mg/dL Est GFR (CKD-EPI)AfAm 63 (>60 ml/min/1.73 sqM) Est GFR (CKD-EPI)NonAf 55 (>60 ml/min/1.73 sqM) Glucose 89 (74-99) mg/dL Calcium 9.6 (8.4-10.2) mg/dL Magnesium 2.1 (1.6-2.3) mg/dL Total Bilirubin 0.7 (0.2-1.3) mg/dL AST 27 (14-36) U/L ALT 27 (9-52) U/L Alkaline Phosphatase 35 L (38-126) U/L Creatine Kinase 38 (30-135) U/L Troponin I (0.000-0.034) ng/mL NT-Pro-B Natriuret Pep pg/mL Total Protein 6.7 (6.3-8.2) g/dL Albumin 3.8 (3.5-5.0) g/dL 10/06/18 10/06/18 Range/Units 13:25 13:25 WBC (3.8-10.6) k/uL RBC (3.80-5.40) m/uL Hgb (11.4-16.0) gm/dL Hct (34.0-46.0) % MCV (80.0-100.0) fL MCH (25.0-35.0) pg MCHC (31.0-37.0) g/dL RDW (11.5-15.5) % Plt Count (150-450) k/uL Neutrophils % % Lymphocytes % % Monocytes % % Eosinophils % % Basophils % % Neutrophils # (1.3-7.7) k/uL Lymphocytes # (1.0-4.8) k/uL Monocytes # (0-1.0) k/uL Eosinophils # (0-0.7) k/uL Basophils # (0-0.2) k/uL PT (9.0-12.0) sec INR (<1.2) APTT (22.0-30.0) sec D-Dimer (<0.60) mg/L FEU Sodium (137-145) mmol/L Potassium (3.5-5.1) mmol/L Chloride (98-107) mmol/L Carbon Dioxide (22-30) mmol/L Anion Gap mmol/L BUN (7-17) mg/dL Creatinine (0.52-1.04) mg/dL Est GFR (CKD-EPI)AfAm (>60 ml/min/1.73 sqM) Est GFR (CKD-EPI)NonAf (>60 ml/min/1.73 sqM) Glucose (74-99) mg/dL Calcium (8.4-10.2) mg/dL Magnesium (1.6-2.3) mg/dL Total Bilirubin (0.2-1.3) mg/dL AST (14-36) U/L ALT (9-52) U/L Alkaline Phosphatase (38-126) U/L Creatine Kinase (30-135) U/L Troponin I <0.012 (0.000-0.034) ng/mL NT-Pro-B Natriuret Pep 405 pg/mL Total Protein (6.3-8.2) g/dL Albumin (3.5-5.0) g/dL - EKG Data -: EKG Interpreted by Me (EKG shows sinus bradycardia 59 NJ interval 154 QRS duration 124 QT ) EKG Comments: Rate was 59/bradycardia. 154 QRS duration 124 QT since QTC 452/447) bundle- branch block pattern no acute ST-T wave changes - Radiology Data Radiology results: report reviewed (I did review the imaging and report no acute findings.), image reviewed Disposition Clinical Impression: Acute coronary syndrome, Unstable angina, Atypical chest pain Disposition: ADMITTED IP TO THIS [facility] Condition: Stable Referrals: Tahir Chavez MD [Primary Care Provider] - 1-2 days
[2018-10-06 14:06] LABS: Basophils % (A) 1 %; Eosinophils # (A) 0.1 k/uL (0-0.7); Eosinophils % (A) 1 %; HCT 38.8 % (34.0-46.0); HGB 12.8 gm/dL (11.4-16.0); Lymphocytes # (A) 1.3 k/uL (1.0-4.8); Lymphocytes % (A) 27 %; MCH 29.5 pg (25.0-35.0); MCHC 32.9 g/dL (31.0-37.0); MCV 89.8 fL (80.0-100.0); Mean Platelet Volume 7.7; Monocytes # (A) 0.4 k/uL (0-1.0); Monocytes % (A) 7 %; Neutrophils # (A) 3.1 k/uL (1.3-7.7); Neutrophils % (A) 62 %; Platelet Count 203 k/uL (150-450); RBC 4.33 m/uL (3.80-5.40); RDW 13.7 % (11.5-15.5)
--- NOTE | 2018-10-06 14:10 | XR ---
EXAMINATION TYPE: XR chest 2V DATE OF EXAM: 10/06/2018 COMPARISON: 04/12/2017 HISTORY: Shortness of breath TECHNIQUE: Frontal and lateral views of the chest are obtained. FINDINGS: Scattered senescent parenchymal changes noted. Hyperinflation compatible with COPD. No evidence for infiltrate. No evidence for atelectasis. Heart size is stable. Mediastinal structures are stable and grossly unremarkable. No evidence for hilar prominence. Degenerative changes dorsal spine. Scoliotic curvature noted. IMPRESSION: 1. No evidence for acute pulmonary disease.
[2018-10-06 14:16] LABS: Albumin 3.8 g/dL (3.5-5.0); Calcium 9.6 mg/dL (8.4-10.2); Magnesium 2.1 mg/dL (1.6-2.3); Potassium 4.3 mmol/L (3.5-5.1); Total Bilirubin 0.7 mg/dL (0.2-1.3); Total Protein 6.7 g/dL (6.3-8.2)
[2018-10-06 14:21] LABS: INR 1.4 (<1.2); Partial Thromboplastin Time 28.7 sec (22.0-30.0)
[2018-10-06 14:27] LABS: D-Dimer 0.98 mg/L FEU (<0.60)
--- NOTE | 2018-10-06 15:51 | CT ---
EXAMINATION TYPE: CT angio chest DATE OF EXAM: 10/06/2018 COMPARISON: 04/13/2017 HISTORY: SOB, chest discomfort CT DLP: 244.4 mGycm CONTRAST: CT chest with contrast and 3D reconstruction with MIP imaging is performed with IV Contrast, patient injected with 80 mL of Isovue 370. Contrast-enhanced CT of the chest was performed through the course of the pulmonary arteries with kj g and mediastinal window settings submitted. 3D reconstruction with MIP imaging was also performed. PULMONARY ARTERIES: The pulmonary arteries and their major tributaries are patent. I do not see milly dence for sizable filling defect to suggest pulmonary embolic process. LUNGS: The lungs are clear and free of infiltrate. No evidence for atelectasis. No pulmonary nodule or mass is detected. No pleural effusion. MEDIASTINUM: Thoracic aorta is of normal caliber,however, evaluation is limited given timing of the contrast bolus. If there is concern for thoracic aortic pathology consider KELVIN. Correlate clinicall y . The heart is not enlarged. No evidence for mediastinal mass. No mediastinal lymph nodes greater than 1cm. Large hiatal hernia noted. HILAR STRUCTURES: No evidence for mass. No hilar lymph nodes greater than 1 cm. UPPER ABDOMEN: No significant abnormality is seen. IMPRESSION: 1. No evidence for Pulmonary embolism at this time.
[2018-10-06] MEDS ORDERED: NITROGLYCERIN SL TABS 0.4 MG TAB SUBLINGUAL PRN (17:20)
[2018-10-06] MEDS ORDERED: LOPERAMIDE 2 MG CAP PO PRN (17:23)
[2018-10-06] MEDS ORDERED: ARTIFICIAL TEARS-HYPROMELLOSE DROPS 15 ML BTL BOTH EYES PRN (17:23)
[2018-10-06] MEDS: SODIUM CHLORIDE 0.9% 1,000 ML IV SCH (20:32)
[2018-10-06 21:30] VITALS: BMI 24.5
[2018-10-06] MEDS: CALCIUM CARBONATE 500 MG CHEWABLE PO SCH (21:34)
[2018-10-07 07:23] LABS: Cholesterol 117 mg/dL (<200); HDL Cholesterol 49 mg/dL (40-60); LDL Cholesterol,Calculated 48 mg/dL (0-99); Triglycerides 99 mg/dL (<150)
[2018-10-07] MEDS ORDERED: EDOXABAN TOSYLATE 30 MG TABLET PO SCH (09:00)
[2018-10-07] MEDS ORDERED: ASPIRIN 325 MG TAB PO SCH (09:00)
[2018-10-07] MEDS: CALCIUM CARBONATE 500 MG CHEWABLE PO SCH ×2 (09:02→20:40)
[2018-10-07] MEDS: LISINOPRIL 20 MG TAB PO SCH (09:02)
[2018-10-07] MEDS: ATORVASTATIN 20 MG TAB PO SCH (09:03)
[2018-10-07] MEDS: CHOLECALCIFEROL 1,000 UNIT TAB PO SCH (09:03)
[2018-10-07] MEDS: MAGNESIUM OXIDE 400 MG TAB PO SCH (09:03)
[2018-10-07] MEDS: amLODIPine 5 MG TAB PO SCH (09:03)
[2018-10-07] MEDS: METOPROLOL TARTRATE 12.5 MG TAB PO SCH (10:05)
--- NOTE | 2018-10-07 10:44 | P.CRDCN ---
History of Present Illness Consult date: 10/07/18 Requesting physician: Leonarda Cooney Consult reason: chest pain, shortness of breath Chief complaint: Shortness of breath and chest discomfort History of present illness: This is a pleasant 88 year old female with a documented history of hypertension, hyperlipidemia, nondiabetic, nonsmoker, who has a history of coronary artery disease with prior stent placement approximately 10 years ago. Patient at that time, states that she follows with Dr. Guzman in the office. Her primary care doctor instructed her at that time that she needed only follow with him so therefore she had not been back to the office for several years. A couple of years ago, patient again started going to the office, saw Dr. Paredes, was diagnosed at that time with paroxysmal atrial fibrillation. She presents to the hospital on this occasion with symptoms of a one week duration of shortness of breath, she states that the shortness of breath is not only exertional in nature, it also comes on with rest. It has been worsening over this past one week. She also states that she noticed a discomfort in the mid to right upper chest area, it would also come and go. She does recall, at the time she had her stent placed, that she had mild similar discomfort in the chest. Usually the patient is quite physically active, she works out at the [employer] regularly, however over the past week or so she has been unable to do the things because of the shortness of breath. Chest x-ray was performed on admission here which did not reveal evidence for any acute pulmonary disease. CTA of the chest was negative for pulmonary embolism. EKG shows a sinus bradycardia with a right bundle branch block pattern. Nonspecific ST-T wave changes. Her data was reviewed, troponins were negative 3, sodium 138, potassium 4.3, BUN 16 and creatinine 0.9. D-dimer 0.9 and the CTA of the chest was negative for pulmonary embolism. Blood cell count 5.0, hemoglobin 12.8, platelet count 203. Past Medical History Past Medical History: Atrial Fibrillation, Coronary Artery Disease (CAD), Cancer, Hypertension Additional Past Medical History / Comment(s): skin CA with removal History of Any Multi-Drug Resistant Organisms: None Reported Past Surgical History: Heart Catheterization With Stent, Hernia Repair, Hysterectomy Past Anesthesia/Blood Transfusion Reactions: No Reported Reaction Date of Last Stent Placement:: 2007 Past Psychological History: No Psychological Hx Reported Smoking Status: Never smoker Past Alcohol Use History: None Reported Past Drug Use History: None Reported - Past Family History Mother Family Medical History: Congestive Heart Failure (CHF) Father Family Medical History: Cancer Additional Family Medical History / Comment(s): prostate cancer Medications and Allergies Home Medications Medication Instructions Recorded Confirmed Type Artificial Tears-Hypromellose 1 drops BOTH EYES TID PRN 04/12/17 10/06/18 History [Artificial Tear Drops] Aspirin EC [Ecotrin Low Dose] 81 mg PO DAILY 04/12/17 10/06/18 History Atorvastatin [Lipitor] 20 mg PO DAILY 04/12/17 10/06/18 History Benazepril HCl 40 mg PO DAILY 04/12/17 10/06/18 History Calcium Carbonate [Calcium] 600 mg PO BID 04/12/17 10/06/18 History Cholecalciferol [Vitamin D3] 5,000 unit PO DAILY 04/12/17 10/06/18 History Edoxaban Tosylate [Savaysa] 30 mg PO DAILY 04/12/17 10/06/18 History Loperamide [Imodium] 2 mg PO QID PRN 04/12/17 10/06/18 History Magnesium Oxide [Mag-Ox] 500 mg PO DAILY 04/12/17 10/06/18 History Multivitamins, Thera [Multivitamin 1 tab PO DAILY 04/12/17 10/06/18 History (formulary)] Nitroglycerin Sl Tabs [Nitrostat] 0.4 mg SUBLINGUAL Q5M PRN 04/12/17 10/06/18 History amLODIPine [Norvasc] 5 mg PO DAILY 04/12/17 10/06/18 History Metoprolol Tartrate [Lopressor] 12.5 mg PO DAILY 10/06/18 10/06/18 History Vitamin B Complex 1 cap PO DAILY 10/06/18 10/06/18 History Vitamin C/Biotin [Hair, Skin and 1 tab PO DAILY 10/06/18 10/06/18 History Nails] Allergies Allergy/AdvReac Type Severity Reaction Status Date / Time Penicillins AdvReac HEADACHES Verified 10/06/18 12:50 Physical Exam Vitals: Vital Signs Temp Pulse Pulse Resp BP BP Pulse Ox 10/07/18 07:46 97.5 F L 54 L 16 121/60 95 10/07/18 03:45 68 18 10/07/18 03:44 97.7 F 68 18 128/59 94 L 10/06/18 23:18 70 18 10/06/18 23:17 98.0 F 70 18 115/58 95 10/06/18 21:18 98.4 F 64 18 134/81 96 10/06/18 21:15 64 18 10/06/18 20:55 98.0 F 60 16 125/62 97 10/06/18 19:00 64 99/60 94 L 10/06/18 18:30 62 111/53 97 10/06/18 18:00 70 137/61 95 10/06/18 17:30 62 132/55 10/06/18 17:18 74 18 136/65 96 10/06/18 17:00 136/65 96 10/06/18 16:30 58 L 134/70 97 10/06/18 16:00 60 98 10/06/18 15:50 58 L 97 10/06/18 15:40 62 98 10/06/18 15:30 124/64 10/06/18 15:20 57 L 124/64 99 10/06/18 15:10 57 L 124/64 96 10/06/18 15:00 59 L 125/62 83 L 10/06/18 14:50 60 125/62 96 10/06/18 14:40 60 125/62 96 10/06/18 14:30 56 L 150/75 97 10/06/18 14:20 58 L 150/75 86 L 10/06/18 14:10 59 L 150/75 10/06/18 14:00 137/68 10/06/18 13:50 58 L 137/68 96 10/06/18 13:40 58 L 137/68 96 10/06/18 13:30 58 L 127/64 96 10/06/18 13:20 64 127/64 98 10/06/18 13:10 55 L 127/64 97 10/06/18 13:00 57 L 143/78 98 10/06/18 12:50 56 L 143/78 98 10/06/18 12:43 59 L 10/06/18 12:23 98.1 F 59 L 18 130/66 98 Intake and Output 03/11/19 03/12/19 03/12/19 22:59 06:59 14:59 Intake Total 60 Balance 60 Intake: Intake, IV Titration 60 Amount Sodium Chloride 0.9% 1, 60 000 ml @ 20 mls/hr IV . Q24H [facility] Rx#:[id number] Other: Voiding Method Toilet Toilet # Voids 1 Weight 63.6 kg PHYSICAL EXAMINATION: GENERAL: 88-year-old female in no acute distress at the time of my examination HEENT: Head is atraumatic, normocephalic. Pupils equal, round. Sclera anicteric. Conjunctiva are clear. Mucous membranes of the mouth are moist. Neck is supple. There is no elevated jugular venous pressure. No carotid] bruit is heard. HEART EXAMINATION: Heart S1 and S2 with soft systolic murmur is heard CHEST EXAMINATION: Lungs are clear to auscultation and precussion. No chest wall tenderness is noted on palpation or with deep breathing. ABDOMEN: Soft, nontender. Bowel sounds are heard. No organomegaly noted. EXTREMITIES: 2+ peripheral pulses with no evidence of peripheral edema and no calf tenderness noted. NEUROLOGIC patient is awake, alert and oriented 3 . . Results 10/06/18 13:25 10/06/18 13:25 Cardiac Enzymes 10/06/18 10/06/18 10/06/18 Range/Units 13:25 13:25 21:00 AST 27 (14-36) U/L Troponin I <0.012 <0.012 (0.000-0.034) ng/mL 10/07/18 Range/Units 00:59 AST (14-36) U/L Troponin I <0.012 (0.000-0.034) ng/mL Coagulation 10/06/18 Range/Units 13:25 PT 14.0 H (9.0-12.0) sec APTT 28.7 (22.0-30.0) sec Lipids 10/07/18 Range/Units 07:00 Triglycerides 99 (<150) mg/dL Cholesterol 117 (<200) mg/dL HDL Cholesterol 49 (40-60) mg/dL CBC 10/06/18 Range/Units 13:25 WBC 5.0 (3.8-10.6) k/uL RBC 4.33 (3.80-5.40) m/uL Hgb 12.8 (11.4-16.0) gm/dL Hct 38.8 (34.0-46.0) % Plt Count 203 (150-450) k/uL Comprehensive Metabolic Panel 10/06/18 Range/Units 13:25 Sodium 138 (137-145) mmol/L Potassium 4.3 (3.5-5.1) mmol/L Chloride 104 (98-107) mmol/L Carbon Dioxide 27 (22-30) mmol/L BUN 16 (7-17) mg/dL Creatinine 0.95 (0.52-1.04) mg/dL Glucose 89 (74-99) mg/dL Calcium 9.6 (8.4-10.2) mg/dL AST 27 (14-36) U/L ALT 27 (9-52) U/L Alkaline Phosphatase 35 L (38-126) U/L Total Protein 6.7 (6.3-8.2) g/dL Albumin 3.8 (3.5-5.0) g/dL Current Medications Generic Name Dose Route Start Last Admin Trade Name Freq PRN Reason Stop Dose Admin Amlodipine Besylate 5 mg 10/07/18 09:00 10/07/18 09:03 Norvasc PO 5 mg DAILY IGGY Administration Artificial Tears 1 drops 10/06/18 17:23 Artificial Tear Drops BOTH EYES TID PRN Dry Eye(s) Aspirin 325 mg 10/07/18 09:00 10/07/18 09:02 Aspirin PO 325 mg DAILY IGGY Administration Atorvastatin Calcium 20 mg 10/07/18 09:00 10/07/18 09:03 Lipitor PO 20 mg DAILY IGGY Administration Calcium Carbonate/Glycine 500 mg 10/06/18 21:00 10/07/18 09:02 Tums PO 500 mg BID GIGY Administration Cholecalciferol 5,000 unit 10/07/18 09:00 10/07/18 09:03 Vitamin D3 PO 5,000 unit DAILY IGGY Administration Edoxaban 30 mg 10/07/18 09:00 10/07/18 09:07 Savaysa PO 30 mg DAILY IGGY Administration Sodium Chloride 1,000 mls @ 20 mls/hr 10/06/18 12:46 10/06/18 14:51 Saline 0.9% IV 10/07/18 12:45 20 mls/hr .Q24H STA Administration Sodium Chloride 1,000 mls @ 20 mls/hr 10/06/18 17:30 10/06/18 20:32 Saline 0.9% IV Not Given .Q24H IGGY Lisinopril 40 mg 10/07/18 09:00 10/07/18 09:02 Zestril PO 40 mg DAILY IGGY Administration Loperamide HCl 2 mg 10/06/18 17:23 Imodium PO QID PRN Diarrhea Magnesium Oxide 400 mg 10/07/18 09:00 10/07/18 09:03 Mag-Ox PO 400 mg DAILY IGGY Administration Metoprolol Tartrate 12.5 mg 10/07/18 09:00 10/07/18 10:05 Lopressor PO Not Given DAILY IGGY Nitroglycerin 0.4 mg 10/06/18 17:20 Nitrostat SUBLINGUAL Q5M PRN Chest Pain Intake and Output 10/06/18 10/07/18 10/07/18 22:59 06:59 14:59 Intake Total 60 Balance 60 Intake: Intake, IV Titration 60 Amount Sodium Chloride 0.9% 1, 60 000 ml @ 20 mls/hr IV . Q24H [facility] Rx#:[id number] Other: Voiding Method Toilet Toilet # Voids 1 Weight 63.6 kg 10/06/18 13:25 10/06/18 13:25 EKG Interpretations (text) EKG shows a sinus bradycardia with a right bundle branch block pattern and nonspecific ST-T wave changes. Assessment and Plan Plan: Assessment and plan #1 symptoms of progressively worsening shortness of breath with associated mild chest discomfort, suggestive of possible angina. Troponins are negative 3. EKG shows a sinus bradycardia with a right bundle branch block pattern and nonspecific ST-T wave changes #2 known history of coronary artery disease with prior stent placement 10 years ago #3 paroxysmal atrial fibrillation, on Savaysa for anticoagulation #4 hypertension #5 hyperlipidemia Plan We will obtain an echocardiogram with Doppler study. Patient has been advised that she may need to undergo cardiac catheterization for more definitive diagnosis. The risks and benefits were explained to the patient her son and his in detail. Further recommendations to follow. DNP note has been reviewed, I agree with a documented findings and plan of care. Patient was seen and examined.
[2018-10-07] MEDS ORDERED: ALPRAZolam 0.5 MG TAB PO PRN (10:46)
[2018-10-07] MEDS ORDERED: ALPRAZolam 0.25 MG TAB PO PRN (10:46)
[2018-10-07] MEDS ORDERED: NITROGLYCERIN SL TABS 0.4 MG TAB SUBLINGUAL PRN (10:46)
[2018-10-07] MEDS ORDERED: ATORVASTATIN 80 MG TAB PO STA (10:46)
[2018-10-07] MEDS ORDERED: SODIUM CHLORIDE 0.9% 1,000 ML in EMPTY BAG 1 BAG IV ONE (10:46)
[2018-10-07] MEDS ORDERED: ASPIRIN 325 MG TAB PO STA (10:46)
--- NOTE | 2018-10-07 12:12 | ECHOF ---
Referral Reason:claudia pain MEASUREMENTS -------- HEIGHT: 162.6 cm WEIGHT: 63.5 kg BP: 121/60 RVIDd: 2.5 cm (< 3.3) IVSd: 1.3 cm (0.6 - 1.1) LVIDd: 3.8 cm (3.9 - 5.3) LVPWd: 1.3 cm (0.6 - 1.1) IVSs: 1.6 cm LVIDs: 2.5 cm LVPWs: 1.6 cm LA Diam: 3.1 cm (2.7 - 3.8) LAESV Index (A-L): 54.78 ml/m Ao Diam: 3.3 cm (2.0 - 3.7) AV Cusp: 1.4 cm (1.5 - 2.6) EPSS: 0.7 cm MV E Logan: 1.15 m/s MV DecT: 118 ms MV A Logan: 0.40 m/s MV E/A Ratio: 2.84 AV maxP.78 mmHg AV meanP.03 mmHg AR PHT: 620 ms RAP: 5.00 mmHg RVSP: 35.30 mmHg MV EF SLOPE: 55.63 mm/s (70 - 150) MV EXCURSION: 1.76 cm (> 18.000) FINDINGS -------- Sinus rhythm. This was a technically good study. The left ventricular size is normal. There is mild concentric left ventricular hypertrophy. Overa ll left ventricular systolic function is normal with, an EF between 55 - 60 %. The right ventricle is normal in size. LA is severely dilated >40 ml/m2 The right atrium is normal in size. There is mild aortic valve sclerosis. There is nedq-ps-lfmgmnct aortic regurgitation. There is mi ld aortic stenosis present. Peak/mean gradient across the Aortic Valve is 27.78mmHg / 12.03mmHg. Mild mitral annular calcification present. Vbuv-bj-brodhjya mitral regurgitation is present. Mild tricuspid regurgitation present. There is mild pulmonary hypertension. The right ventricular systolic pressure, as measured by Doppler, is 35.30mmHg. Trace/mild (physiologic) pulmonic regurgitation. The aortic root size is normal. Normal inferior vena cava with normal inspiratory collapse consistent with estimated right atrial pre ssure of 5 mmHg. There is no pericardial effusion. CONCLUSIONS -------- 1. Sinus rhythm. 2. This was a technically good study. 3. The left ventricular size is normal. 4. There is mild concentric left ventricular hypertrophy. 5. Overall left ventricular systolic function is normal with, an EF between 55 - 60 %. 6. LA is severely dilated >40 ml/m2 7. There is mild aortic valve sclerosis. 8. There is xbwv-ya-znehlatp aortic regurgitation. 9. There is mild aortic stenosis present. 10. Peak/mean gradient across the Aortic Valve is 27.78mmHg / 12.03mmHg. 11. Mild mitral annular calcification present. 12. Efpa-nr-blwuiloa mitral regurgitation is present. 13. Mild tricuspid regurgitation present. 14. There is mild pulmonary hypertension. 15. Trace/mild (physiologic) pulmonic regurgitation. 16. The aortic root size is normal. 17. Normal inferior vena cava with normal inspiratory collapse consistent with estimated right atrial pressure of 5 mmHg. 18. There is no pericardial effusion. SOLDERER DIPPER: RIGOBERTO Oakley
--- NOTE | 2018-10-07 12:43 | P.HPIM ---
History of Present Illness H&P Date: 10/07/18 Chief Complaint: Shortness of breath This is an 88-year-old pleasant lady patient of Dr. Combs and Dr. skaggs, known history of CAD with prior PCI 2007, chronic atrial fibrillation hypertension hyperlipidemia, admitted to the hospital secondary to dyspnea and exertion for the past 4 weeks. Patient has escalating dyspnea and exertion 2 days 3 days prior to admission for which she can't even catch up on her breathing just coming out of the bathroom. Patient denies any history of CHF in the past, and history of PE or DVT, patient is physically active for which she goes to the [facility] 2 times a week, with water aerobics and treadmill exercises. Patient denies any recent triggers including cough aspiration pneumonia, no edema in the legs, no new medications and no chemical exposure except bathroom cleansers. Patient denies any acute dyspnea with cleansers either. Patient denies any PND or lower extremity edema, no history of asthma or reactive airway disease in the past, patient has chronic postnasal drainage, no purulence denies any wheezing episodes In the emergency room, CTA of the chest shows no pulmonary emboli, large hiatal hernia EKG shows sinus bradycardia heart rate of 59 5 bundle QTc 447, troponins 0.01 2.01 2.012, BNP of 405 LDL 48 d-dimer 0.98 hemoglobin of 12 echocardiogram performed 10/07/2018, mild concentric LVH, EF 55-60, mild aortic valve sclerosis moderate AR mild peak gradient 27/12 and mild pulmonary hypertension right ventricle systolic pressure 35 no pericardial effusion Review of Systems Constitutional: Reports as per HPI, Denies anorexia, Denies chills, Denies chronic headaches, Denies chronic pain, Denies daytime sleepiness, Denies fatigue, Denies fever, Denies lethargy, Denies malaise, Denies night sweats, Denies poor appetite, Denies sweats, Denies weakness, Denies weight gain, Denies weight loss Ears, nose, mouth and throat: Reports as per HPI, Denies ant. neck pain, Denies bleeding gums, Denies dental pain, Denies dysphagia, Denies epistaxis, Denies headache, Denies hoarseness, Denies mouth pain, Denies nasal congestion, Denies nasal discharge, Denies neck fullness/pressure, Denies neck lump, Denies nose pain, Denies odynophagia, Denies post-nasal drip, Denies sinus pain, Denies sinus pressure, Denies swelling in mouth, Denies swelling in throat, Denies sore throat, Denies vertigo, Denies voice changes Cardiovascular: Reports as per HPI, Reports decreased exercise tolerance, Reports dyspnea on exertion, Denies chest pain, Denies claudication, Denies edema, Denies high blood pressure, Denies irregular heart beat, Denies leg edema, Denies lightheadedness, Denies orthopnea, Denies palpitations, Denies paroxysmal nocturnal dyspnea, Denies phlebitis, Denies rapid heart beat, Denies shortness of breath, Denies syncope Respiratory: Reports as per HPI, Denies congestion, Denies cough, Denies cough with sputum, Denies dyspnea, Denies excessive sputum, Denies hemoptysis, Denies home oxygen, Denies pain, Denies pain on inspiration, Denies pleurisy, Denies respiratory infections, Denies sleep apnea, Denies snoring, Denies wheezing Gastrointestinal: Reports as per HPI, Denies abdominal pain, Denies belching, Denies bloating, Denies BRBPR, Denies change in bowel habits, Denies coffee ground emesis, Denies constipation, Denies diarrhea, Denies dyspepsia, Denies early satiety, Denies excessive gas, Denies heartburn, Denies hematemesis, Denies hematochezia, Denies indigestion, Denies jaundice, Denies lactose intolerance, Denies loss of appetite, Denies melena, Denies nausea, Denies vomiting Genitourinary: Reports as per HPI, Denies abnormal vaginal bleeding, Denies decreased libido, Denies difficulty conceiving, Denies difficulty voiding, Denies dysmenorrhea, Denies dyspareunia, Denies dysuria, Denies flank pain, Denies genital sores, Denies hematuria, Denies hot flashes, Denies incomplete emptying, Denies kidney stones, Denies menorrhagia, Denies mixed incontinence, Denies nocturia, Denies pelvic pain, Denies post void dribbling, Denies , Denies prolapse symptoms, Denies stress incontinence, Denies urge incontinence, Denies urgency, Denies urinary frequency, Denies vaginal discharge, Denies vaginal dryness, Denies vaginal itching, Denies vaginal odor Menstruation: Reports as per HPI Musculoskeletal: Reports as per HPI Integumentary: Reports as per HPI, Denies acne, Denies boils, Denies brittle nails, Denies change in hair/nails, Denies color changes, Denies darkening of skin, Denies depigmentation, Denies dryness, Denies foot/leg ulcers, Denies growths, Denies hirsutism, Denies lesions, Denies onychomycosis, Denies pruritus, Denies rash, Denies sores, Denies striae, Denies unusual bruising, Denies wounds Neurological: Reports as per HPI, Denies aphasia, Denies ataxia, Denies balance difficulties, Denies burning pain, Denies change in mentation, Denies change in smell/taste, Denies change in speech, Denies confusion, Denies convulsions, Denies double vision, Denies gait dysfunction, Denies head injury, Denies headaches, Denies hearing difficulties, Denies lack of coordination, Denies loss of vision, Denies memory loss, Denies migraines, Denies motor disturbance, Denies numbness, Denies paralysis, Denies paresthesias, Denies seizures, Denies sensory deficit, Denies spasticity, Denies syncope, Denies tic, Denies tingling, Denies transient paralysis, Denies tremors, Denies vertigo, Denies weakness, Denies visual changes Psychiatric: Reports as per HPI Endocrine: Reports as per HPI Hematologic/Lymphatic: Reports as per HPI, Denies easy bleeding, Denies easy bruising, Denies lymphadenopathy, Denies lymphedema, Denies thrombophilia Allergic/Immunologic: Reports as per HPI, Denies allergic rhinitis, Denies anaphylaxis, Denies angioedema, Denies gluten intolerance, Denies persistent in fections, Denies seasonal allergies, Denies urticaria, Denies wheezing Past Medical History Past Medical History: Atrial Fibrillation, Coronary Artery Disease (CAD), Cancer, Hypertension Additional Past Medical History / Comment(s): skin CA with removal History of Any Multi-Drug Resistant Organisms: None Reported Past Surgical History: Heart Catheterization With Stent, Hernia Repair, Hysterectomy Past Anesthesia/Blood Transfusion Reactions: No Reported Reaction Date of Last Stent Placement:: 2007 Past Psychological History: No Psychological Hx Reported Smoking Status: Never smoker Past Alcohol Use History: None Reported Past Drug Use History: None Reported - Past Family History Mother Family Medical History: Congestive Heart Failure (CHF) Father Family Medical History: Cancer Additional Family Medical History / Comment(s): prostate cancer Medications and Allergies Home Medications Medication Instructions Recorded Confirmed Type Artificial Tears-Hypromellose 1 drops BOTH EYES TID PRN 04/12/17 10/06/18 History [Artificial Tear Drops] Aspirin EC [Ecotrin Low Dose] 81 mg PO DAILY 04/12/17 10/06/18 History Atorvastatin [Lipitor] 20 mg PO DAILY 04/12/17 10/06/18 History Benazepril HCl 40 mg PO DAILY 04/12/17 10/06/18 History Calcium Carbonate [Calcium] 600 mg PO BID 04/12/17 10/06/18 History Cholecalciferol [Vitamin D3] 5,000 unit PO DAILY 04/12/17 10/06/18 History Edoxaban Tosylate [Savaysa] 30 mg PO DAILY 04/12/17 10/06/18 History Loperamide [Imodium] 2 mg PO QID PRN 04/12/17 10/06/18 History Magnesium Oxide [Mag-Ox] 500 mg PO DAILY 04/12/17 10/06/18 History Multivitamins, Thera [Multivitamin 1 tab PO DAILY 04/12/17 10/06/18 History (formulary)] Nitroglycerin Sl Tabs [Nitrostat] 0.4 mg SUBLINGUAL Q5M PRN 04/12/17 10/06/18 History amLODIPine [Norvasc] 5 mg PO DAILY 04/12/17 10/06/18 History Metoprolol Tartrate [Lopressor] 12.5 mg PO DAILY 10/06/18 10/06/18 History Vitamin B Complex 1 cap PO DAILY 10/06/18 10/06/18 History Vitamin C/Biotin [Hair, Skin and 1 tab PO DAILY 10/06/18 10/06/18 History Nails] Allergies Allergy/AdvReac Type Severity Reaction Status Date / Time Penicillins AdvReac HEADACHES Verified 10/06/18 12:50 Physical Exam Vitals: Vital Signs Temp Pulse Pulse Resp BP BP Pulse Ox 10/07/18 07:46 97.5 F L 54 L 16 121/60 95 10/07/18 03:45 68 18 10/07/18 03:44 97.7 F 68 18 128/59 94 L 10/06/18 23:18 70 18 10/06/18 23:17 98.0 F 70 18 115/58 95 10/06/18 21:18 98.4 F 64 18 134/81 96 10/06/18 21:15 64 18 10/06/18 20:55 98.0 F 60 16 125/62 97 10/06/18 19:00 64 99/60 94 L 10/06/18 18:30 62 111/53 97 10/06/18 18:00 70 137/61 95 10/06/18 17:30 62 132/55 10/06/18 17:18 74 18 136/65 96 10/06/18 17:00 136/65 96 10/06/18 16:30 58 L 134/70 97 10/06/18 16:00 60 98 10/06/18 15:50 58 L 97 10/06/18 15:40 62 98 10/06/18 15:30 124/64 10/06/18 15:20 57 L 124/64 99 10/06/18 15:10 57 L 124/64 96 10/06/18 15:00 59 L 125/62 83 L 10/06/18 14:50 60 125/62 96 10/06/18 14:40 60 125/62 96 10/06/18 14:30 56 L 150/75 97 10/06/18 14:20 58 L 150/75 86 L 10/06/18 14:10 59 L 150/75 10/06/18 14:00 137/68 10/06/18 13:50 58 L 137/68 96 10/06/18 13:40 58 L 137/68 96 10/06/18 13:30 58 L 127/64 96 10/06/18 13:20 64 127/64 98 10/06/18 13:10 55 L 127/64 97 10/06/18 13:00 57 L 143/78 98 10/06/18 12:50 56 L 143/78 98 10/06/18 12:43 59 L 10/06/18 12:23 98.1 F 59 L 18 130/66 98 Intake and Output 10/06/18 10/07/18 10/07/18 22:59 06:59 14:59 Intake Total 60 Balance 60 Intake: Intake, IV Titration 60 Amount Sodium Chloride 0.9% 1, 60 000 ml @ 20 mls/hr IV . Q24H [facility] Rx#:[id number] Other: Voiding Method Toilet Toilet # Voids 1 Weight 63.6 kg - Constitutional General appearance: average body habitus, cooperative, no acute distress - EENT Eyes: anicteric sclerae, EOMI, PERRLA, dentition normal, normal appearance ENT: NA/AT, normal oropharynx - Neck Neck: normal ROM - Respiratory Respiratory: bilateral: CTA, negative: diminished, dullness, rales, rhonchi, wheezing - Cardiovascular Rhythm: regular Heart sounds: normal: S1, S2 Abnormal Heart Sounds: no systolic murmur, no diastolic murmur, no rub, no S3 Gallop, no S4 Gallop, no click, no other - Gastrointestinal General gastrointestinal: normal bowel sounds, soft - Integumentary Integumentary: decreased turgor, normal - Neurologic Neurologic: CNII-XII intact - Musculoskeletal Musculoskeletal: gait normal, strength equal bilaterally - Psychiatric Psychiatric: A&O x's 3, appropriate affect, intact judgment & insight Results CBC & Chem 7: 10/06/18 13:25 10/06/18 13:25 Labs: Abnormal Lab Results - Last 24 Hours (Table) 10/06/18 10/06/18 Range/Units 13:25 13:25 PT 14.0 H (9.0-12.0) sec INR 1.4 H (<1.2) D-Dimer 0.98 H (<0.60) mg/L FEU Alkaline Phosphatase 35 L (38-126) U/L Laboratory Results WBC 5.0 k/uL (3.8-10.6) 10/06/18 13:25 RBC 4.33 m/uL (3.80-5.40) 10/06/18 13:25 Hgb 12.8 gm/dL (11.4-16.0) 10/06/18 13:25 Hct 38.8 % (34.0-46.0) 10/06/18 13:25 MCV 89.8 fL (80.0-100.0) 10/06/18 13:25 MCH 29.5 pg (25.0-35.0) 10/06/18 13:25 MCHC 32.9 g/dL (31.0-37.0) 10/06/18 13:25 RDW 13.7 % (11.5-15.5) 10/06/18 13:25 Plt Count 203 k/uL (150-450) 10/06/18 13:25 Neutrophils % 62 % 10/06/18 13:25 Lymphocytes % 27 % 10/06/18 13:25 Monocytes % 7 % 10/06/18 13:25 Eosinophils % 1 % 10/06/18 13:25 Basophils % 1 % 10/06/18 13:25 Neutrophils # 3.1 k/uL (1.3-7.7) 10/06/18 13:25 Lymphocytes # 1.3 k/uL (1.0-4.8) 10/06/18 13:25 Monocytes # 0.4 k/uL (0-1.0) 10/06/18 13:25 Eosinophils # 0.1 k/uL (0-0.7) 10/06/18 13:25 Basophils # 0.0 k/uL (0-0.2) 10/06/18 13:25 PT 14.0 sec (9.0-12.0) H 10/06/18 13:25 INR 1.4 (<1.2) H 10/06/18 13:25 APTT 28.7 sec (22.0-30.0) 10/06/18 13:25 D-Dimer 0.98 mg/L FEU (<0.60) H 10/06/18 13:25 Sodium 138 mmol/L (137-145) 10/06/18 13:25 Potassium 4.3 mmol/L (3.5-5.1) 10/06/18 13:25 Chloride 104 mmol/L (98-107) 10/06/18 13:25 Carbon Dioxide 27 mmol/L (22-30) 10/06/18 13:25 Anion Gap 7 mmol/L 10/06/18 13:25 BUN 16 mg/dL (7-17) 10/06/18 13:25 Creatinine 0.95 mg/dL (0.52-1.04) 10/06/18 13:25 Est GFR (CKD-EPI)AfAm 63 (>60 ml/min/1.73 sqM) 10/06/18 13:25 Est GFR (CKD-EPI)NonAf 55 (>60 ml/min/1.73 sqM) 10/06/18 13:25 Glucose 89 mg/dL (74-99) 10/06/18 13:25 Calcium 9.6 mg/dL (8.4-10.2) 10/06/18 13:25 Magnesium 2.1 mg/dL (1.6-2.3) 10/06/18 13:25 Total Bilirubin 0.7 mg/dL (0.2-1.3) 10/06/18 13:25 AST 27 U/L (14-36) 10/06/18 13:25 ALT 27 U/L (9-52) 10/06/18 13:25 Alkaline Phosphatase 35 U/L (38-126) L 10/06/18 13:25 Creatine Kinase 38 U/L (30-135) 10/06/18 13:25 Troponin I <0.012 ng/mL (0.000-0.034) 10/07/18 00:59 NT-Pro-B Natriuret Pep 405 pg/mL 10/06/18 13:25 Total Protein 6.7 g/dL (6.3-8.2) 10/06/18 13:25 Albumin 3.8 g/dL (3.5-5.0) 10/06/18 13:25 Triglycerides 99 mg/dL (<150) 10/07/18 07:00 Cholesterol 117 mg/dL (<200) 10/07/18 07:00 LDL Cholesterol, Calc 48 mg/dL (0-99) 10/07/18 07:00 HDL Cholesterol 49 mg/dL (40-60) 10/07/18 07:00 Thrombosis Risk Factor Assmnt - DVT/VTE Prophylaxis DVT/VTE Prophylaxis: Pharmacologic Prophylaxis ordered - Choose All That Apply Any of the Below Risk Factors Present?: No Other Risk Factors: Yes Each Risk Factor Represents 3 Points: Age 75 years or older Other congenital or acquired thrombophilia - If yes, enter type in comment: No Thrombosis Risk Factor Assessment Total Risk Factor Score: 3 Thrombosis Risk Factor Assessment Level: Moderate Risk Assessment and Plan Plan: 1. Significant dyspnea and exertion with known history of CAD, presenting with a negative CTA by PE protocol, proBNP is normal, cannot rule out angina equivalent symptomatology, patient is seen by cardiology, for which cardiac cath scheduled to be performed in September 27 07/17/2019, cannot rule out reactive airway disease, if cardiac cath is without any worrisome ischemia, we'll going to investigate pulmonary status. Would start Pulmicort 1 mg twice a day possible IV steroids in the morning rather than 0.5, no IV steroids at this time, check IgE levels 2. CAD with prior cardiac stents 2007, one-vessel next 3. Hypertension on metoprolol, Lipitor 20, benazepril 40 mg daily 4. Mild pulmonary hypertension continue current meds, and no diuretics needed at this time consider outpatient sleep study 5. 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 Paroxysmal atrial fibrillation on metoprolol 12.5 mg daily patient on long- term factor X a inhibition with Savayza 7. Chronic rhinorrhea suspect ALLERGIC rhinitis perennial start Flonase, caution, patient is on savayza DVT prophylaxis on long-term factor X a inhibition GI prophylaxis
[2018-10-07] MEDS: FLUTICASONE 50MCG/SPRAY NASAL 16GM EA NOSTRIL SCH ×2 (20:41→20:42)
[2018-10-07] MEDS: SODIUM CHLORIDE 0.9% 1,000 ML IV SCH (20:42)
[2018-10-07] MEDS: BUDESONIDE 1 MG/2 ML NEBU INHALATION SCH (21:31)
[2018-10-08] MEDS: CHOLECALCIFEROL 1,000 UNIT TAB PO SCH (06:08)
[2018-10-08] MEDS: amLODIPine 5 MG TAB PO SCH (06:08)
[2018-10-08] MEDS: CALCIUM CARBONATE 500 MG CHEWABLE PO SCH (06:08)
[2018-10-08] MEDS: MAGNESIUM OXIDE 400 MG TAB PO SCH (06:09)
[2018-10-08] MEDS: METOPROLOL TARTRATE 12.5 MG TAB PO SCH (06:09)
[2018-10-08] MEDS: LISINOPRIL 20 MG TAB PO SCH (06:09)
[2018-10-08] MEDS: ATORVASTATIN 20 MG TAB PO SCH (06:24)
[2018-10-08] MEDS: FLUTICASONE 50MCG/SPRAY NASAL 16GM EA NOSTRIL SCH (06:24)
[2018-10-08] MEDS: BUDESONIDE 1 MG/2 ML NEBU INHALATION SCH (07:07)
[2018-10-08] MEDS ORDERED: ASPIRIN 81 MG PO SCH (09:00)
[2018-10-08] MEDS ORDERED: LIDOCAINE 1% INJ 10MG/ML (20 ML MDV) ONE (09:16)
[2018-10-08] MEDS ORDERED: fentaNYL (PF) 50 MCG/ML 2 ML AMP ONE (09:34)
[2018-10-08] MEDS ORDERED: fentaNYL (PF) 50 MCG/ML 2 ML AMP IVP ONE (09:44)
[2018-10-08] MEDS ORDERED: LIDOCAINE 1% INJ 10MG/ML (20 ML MDV) SQ ONE (09:47)
[2018-10-08] MEDS ORDERED: IOPAMIDOL-370 125ML BTL INJ ONE (10:00)
[2018-10-08] MEDS ORDERED: IV FLUID CONTINUATION 1,000 ML IV ONE (10:01)
[2018-10-08] MEDS ORDERED: RX INFO: IV CONTRAST WAS GIVEN 1 EACH MISC MISCELLANE PRN (10:14)
--- NOTE | 2018-10-08 10:14 | P.CARDCATH ---
Date of Procedure: 10/08/18 Preoperative Diagnosis: Unstable angina Postoperative Diagnosis: Stable coronary artery disease with 30-40% in-stent stenosis involving the mid LAD Procedure(s) Performed: Left heart catheterization without left ventriculography Description of Procedure: HISTORY: This is a 88-year-old female with history of hypertension hyperlipidemia and previous ischemic heart disease and stent placement of the mid LAD. Patient is admitted to the hospital with exertional tiredness and shortness of breath. Her cardiac enzymes and EKGs were negative . In view of her symptoms and previous history, she is advised to have a cardiac cathete rization for definitive diagnosis CONSENT:I have discussed the risks, benefits and alternative therapies for the above-mentioned procedure and for both sedation/analgesia as well as necessary blood product administration, if indicated, as they pertain to this patient. The patient has indicated understanding and acceptance of the risks and procedures discussed. PROCEDURE: Patient was brought to the lab in a fasting state. Patient was given some IV sedation. The right groin is infiltrated with lidocaine and right femoral artery was entered using Seldinger technique. A 6-Luxembourgish catheter was left in place and selective coronary arteriography was performed. Patient tolerated the procedure well. Femoral angiogram was performed and Angio-Seal was applied for hemostasis. No immediate complications were noted and patient was transferred to [facility] in a stable condition Conscious Sedation: Versed 0mg Fentanyl 12.5 g Duration 13minutes HEMODYNAMICS: The aortic pressure is 140/70. Left ventricle end-diastolic pressure is about 8-10. There was no gradient across the aortic valve SELECTIVE CORONARY ARTERIOGRAPHY: LEFT MAIN: This is normal length and pre-of occlusive disease THE LEFT ANTERIOR DESCENDING CORONARY ARTERY:. This is a good caliber vessel giving rise to good-sized first diagonal branch. The stent in the mid LAD appears to be patent with 30-40% in-stent stenosis. Beyond that the vessel is free of occlusive disease THE LEFT CIRCUMFLEX AND IS CORONARY ARTERY:. This is a moderate caliber vessel giving rise to small OM branch and PLV branch. The circumflex and its branches are free of any occlusive disease THE RIGHT CORONARY ARTERY:. This is a dominant vessel giving rise to PDA and PLV. The vessel is free of occlusive disease LEFT VENTRICULOGRAPHY:. This was not performed FINAL IMPRESSION: Stable coronary artery disease with 30-40% in-stent stenosis involving the stent in the mid LAD. Rest of the coronary system is free of occlusive disease PLAN:. Continue maximal medical therapy PROGNOSIS: Fair
[2018-10-08 10:15] VITALS: TEMP 98.1
[2018-10-08] MEDS ORDERED: SODIUM CHLORIDE 0.9% 1,000 ML IV SCH (10:15)
[2018-10-08 12:35] VITALS: RESP 18
--- NOTE | 2018-10-08 14:31 | P.DS ---
Providers Date of admission: 10/06/18 17:20 Expected date of discharge: 10/08/18 Attending physician: Leonarda Cooney Consults: 10/06/18 17:20 Consult Physician Urgent Consulting Provider: Vince Ponce Consult Reason/Comments: Exertional dyspnea, atypical chest pain Do you want consulting provider notified?: Yes Primary care physician: [facility] Course: This is an 88-year-old pleasant lady patient of Dr. Combs and Dr. skaggs, known history of CAD with prior PCI 2007, chronic atrial fibrillation hypertension hyperlipidemia, admitted to the hospital secondary to dyspnea and exertion for the past 4 weeks. Patient has escalating dyspnea and exertion 2 days 3 days prior to admission for which she can't even catch up on her breathing just coming out of the bathroom. Patient denies any history of CHF in the past, and history of PE or DVT, patient is physically active for which she goes to the [facility] 2 times a week, with water aerobics and treadmill exercises. Patient denies any recent triggers including cough aspiration pneumonia, no edema in the legs, no new medications and no chemical exposure except bathroom cleansers. Patient denies any acute dyspnea with cleansers either. Patient denies any PND or lower extremity edema, no history of asthma or reactive airway disease in the past, patient has chronic postnasal drainage, no purulence denies any wheezing episodes In the emergency room, CTA of the chest shows no pulmonary emboli, large hiatal hernia EKG shows sinus bradycardia heart rate of 59 5 bundle QTc 447, troponins 0.01 2.01 2.012, BNP of 405 LDL 48 d-dimer 0.98 hemoglobin of 12 echocardiogram performed 10/07/2018, mild concentric LVH, EF 55-60, mild aortic valve sclerosis moderate AR mild peak gradient 24/07 and mild pulmonary hypertension right ventricle systolic pressure 35 no pericardial effusion 10/08: Troponins have been negative on 3 draws. Triglycerides 99, cholesterol 117, LDL 48, HDL 49. IgE 5.54. Heart catheterization was done and found 30-40% coronary artery disease in-stent stenosis in the mid LAD. No plan for any intervention and patient has been cleared for discharge by digital manager. Patient denies having any shortness of breath at the time of evaluation. We will plan to send her home on prednisone and Symbicort. Patient to be discharged home today in stable condition. Patient will be set up with an appointment with Dr. RYAN Matthews as patient's daughter follows with him. Patient to be evaluated for reactive airway disease. Discharge diagnoses: 1. Significant dyspnea and exertion with known history of CAD, cannot rule out reactive airway disease 2. CAD with prior cardiac stents 2008, one-vessel 3. Hypertension. 4. Mild pulmonary hypertension 5. 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 Paroxysmal atrial fibrillation 7. 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 Rosenda Huang nurse practitioner acting as scribe for signing physician. Patient Condition at Discharge: Good Plan - Discharge Summary Discharge Rx Participant: No New Discharge Prescriptions: New Fluticasone Nasal Latham [Flonase Nasal Latham] 1 spray EA NOSTRIL BID #1 spr predniSONE 0 mg PO DIRECTED #45 tab Budesonide/Formoterol Fumarate [Symbicort 160-4.5 Mcg Inhaler] 2 puff INHALATION BID #1 inhaler Continue Nitroglycerin Sl Tabs [Nitrostat] 0.4 mg SUBLINGUAL Q5M PRN PRN Reason: Chest Pain Multivitamins, Thera [Multivitamin (formulary)] 1 tab PO DAILY Aspirin EC [Ecotrin Low Dose] 81 mg PO DAILY Magnesium Oxide [Mag-Ox] 500 mg PO DAILY Loperamide [Imodium] 2 mg PO QID PRN PRN Reason: Diarrhea Calcium Carbonate [Calcium] 600 mg PO BID amLODIPine [Norvasc] 5 mg PO DAILY Edoxaban Tosylate [Savaysa] 30 mg PO DAILY Cholecalciferol [Vitamin D3] 5,000 unit PO DAILY Benazepril HCl 40 mg PO DAILY Atorvastatin [Lipitor] 20 mg PO DAILY Artificial Tears-Hypromellose [Artificial Tear Drops] 1 drops BOTH EYES TID PRN PRN Reason: Dry Eye(S) Vitamin C/Biotin [Hair, Skin and Nails] 1 tab PO DAILY Vitamin B Complex 1 cap PO DAILY Metoprolol Tartrate [Lopressor] 12.5 mg PO DAILY Discharge Medication List Artificial Tears-Hypromellose [Artificial Tear Drops] 1 drops BOTH EYES TID PRN 04/12/17 [History] Aspirin EC [Ecotrin Low Dose] 81 mg PO DAILY 04/12/17 [History] Atorvastatin [Lipitor] 20 mg PO DAILY 04/12/17 [History] Benazepril HCl 40 mg PO DAILY 04/12/17 [History] Calcium Carbonate [Calcium] 600 mg PO BID 04/12/17 [History] Cholecalciferol [Vitamin D3] 5,000 unit PO DAILY 04/12/17 [History] Edoxaban Tosylate [Savaysa] 30 mg PO DAILY 04/12/17 [History] Loperamide [Imodium] 2 mg PO QID PRN 04/12/17 [History] Magnesium Oxide [Mag-Ox] 500 mg PO DAILY 04/12/17 [History] Multivitamins, Thera [Multivitamin (formulary)] 1 tab PO DAILY 04/12/17 [History] Nitroglycerin Sl Tabs [Nitrostat] 0.4 mg SUBLINGUAL Q5M PRN 04/12/17 [History] amLODIPine [Norvasc] 5 mg PO DAILY 04/12/17 [History] Metoprolol Tartrate [Lopressor] 12.5 mg PO DAILY 10/06/18 [History] Vitamin B Complex 1 cap PO DAILY 10/06/18 [History] Vitamin C/Biotin [Hair, Skin and Nails] 1 tab PO DAILY 10/06/18 [History] Budesonide/Formoterol Fumarate [Symbicort 160-4.5 Mcg Inhaler] 2 puff INHALATION BID #1 inhaler 10/08/18 [Rx] Fluticasone Nasal Latham [Flonase Nasal Latham] 1 spray EA NOSTRIL BID #1 spr 10/08/18 [Rx] predniSONE 0 mg PO DIRECTED #45 tab 10/08/18 [Rx] Follow up Appointment(s)/Referral(s): Torres Skaggs MD [STAFF PHYSICIAN] - 10/15/18 1:45 pm (Saturday) Tahir Chavez MD [Primary Care Provider] - 10/14/18 10:45 am (With Allie MOURA) Rosas Matthews MD [STAFF PHYSICIAN] - 10/10/18 3:30 pm (Saturday) Patient Instructions/Handouts: *Sur[facility] - After Heart Catheterization - [facility] Helper Preserves Instructions, Left Heart Catheterization (DC)
[2018-10-08 16:21] VITALS: BP 145/72; PULSE 59
== END 2018-10-08 16:50 | disposition home or self-care (01) ==
LOC: EC 12:07 → 1SOBS 17:20 → 3SCARD 20:49
PROVIDERS: ADMIT Family Medicine; ATTEND Family Medicine
DX: I25.110 Atherosclerotic heart disease of native coronary artery with unstable angina pectoris (principal); T82.855A Stenosis of coronary artery stent, initial encounter; R00.1 Bradycardia, unspecified; I10 Essential (primary) hypertension; E78.5 Hyperlipidemia, unspecified; I27.20 Pulmonary hypertension, unspecified; J34.89 Other specified disorders of nose and nasal sinuses; I48.0 Paroxysmal atrial fibrillation; I45.10 Unspecified right bundle-branch block; Z85.828 Personal history of other malignant neoplasm of skin; Z79.82 Long term (current) use of aspirin; Z79.899 Other long term (current) drug therapy; Z79.01 Long term (current) use of anticoagulants; Z88.0 Allergy status to penicillin; Y83.1 Surgical operation with implant of artificial internal device as the cause of abnormal reaction of the patient, or of later complication, without mention of misadventure at the time of the procedure; Z90.710 Acquired absence of both cervix and uterus; Z82.49 Family history of ischemic heart disease and other diseases of the circulatory system
CPT/HCPCS: 96360; 96361; 99285; 36415; 94640; 94760; 93005; 93306; 93458; 85379; 83880; 80061; 80053; 82550; 83735; 84484 ×2; 85025; 85610; 85730; 82785; 71046; 71275; G0378 ×4; C1760; C1769 ×3; C1894; J2001; J3010; Q9967 ×2

== ENCOUNTER → 2020-12-21 | Outpatient (CLI) | payer MEDICARE ==
[2020-12-21 16:01] LABS: Anisocytosis Slight; HCT 33.5 % (34.0-46.0); HGB 10.7 gm/dL (11.4-16.0); Hypochromasia Moderate; MCH 25.5 pg (25.0-35.0); MCHC 32.1 g/dL (31.0-37.0); MCV 79.4 fL (80.0-100.0); Mean Platelet Volume 7.4; Microcytosis Slight; Platelet Count 199 k/uL (150-450); RBC 4.22 m/uL (3.80-5.40); RDW 16.9 % (11.5-15.5); WBC 5.2 k/uL (3.8-10.6)
== END | disposition home or self-care (01) ==
LOC: LABPAT 14:18
PROVIDERS: ATTEND Internal Medicine Cardiovascular Disease
DX: Z01.812 Encounter for preprocedural laboratory examination (principal); I25.10 Atherosclerotic heart disease of native coronary artery without angina pectoris
CPT/HCPCS: 80051; 82565; 84520; 85027

== ENCOUNTER → 2020-12-27 | Day surgery (SDC) | payer MEDICARE ==
[2020-12-22 11:35] VITALS: BMI 23.1
[~2020-12-27] MED LIST: ALPRAZolam 0.25 MG TAB PO PRN; ALPRAZolam 0.5 MG TAB PO PRN; ASPIRIN 325 MG TAB PO STA; ASPIRIN 81 MG ONE; HEPARIN SODIUM 1,000 UN/ML (10ML VL) IV ONE; HEPARIN SODIUM,PORCINE 10,000 UNIT in SODIUM CHLORIDE 0.9% 1,000 ML IRRIGATION PRN; HEPARIN SODIUM,PORCINE 2,500 UNIT in SODIUM CHLORIDE 0.9% 250 ML IRRIGATION PRN; IOPAMIDOL-370 125ML BTL INJ ONE; LIDOCAINE 1% INJ 10MG/ML (20 ML MDV) SQ ONE; MIDAZOLAM 2 MG/2 ML VIAL IVP ONE; NITROGLYCERIN SL TABS 0.4 MG TAB SUBLINGUAL PRN; RX INFO: IV CONTRAST WAS GIVEN 1 EACH MISC MISCELLANE PRN; SODIUM CHLORIDE 0.9% 1,000 ML IV SCH; SODIUM CHLORIDE 0.9% 1,000 ML in EMPTY BAG 1 BAG IV ONE; VERAPAMIL SYRINGE (5 MG/10 ML) INTRAARTER ONE; fentaNYL (PF) 50 MCG/ML 2 ML AMP IVP ONE
[2020-12-27 06:25] VITALS: RESP 18; TEMP 97.8
--- NOTE | 2020-12-27 08:20 | P.CARDCATH ---
Date of Procedure: 12/27/20 Preoperative Diagnosis: Shortness of breath and positive stress test Postoperative Diagnosis: Stable coronary artery disease with patent stent in the LAD with mild in-stent stenosis Procedure(s) Performed: Left heart catheterization without left ventriculography Description of Procedure: HISTORY: This is a 89-year-old female with history of stent placement of the mid LAD has been experiencing exertional shortness of breath. A stress test was suggestive off ischemia in the anterolateral wall. Patient is advised to have a cardiac catheterization to rule out any progression of ischemic heart disease CONSENT:I have discussed the risks, benefits and alternative therapies for the above-mentioned procedure and for both sedation/analgesia as well as necessary blood product administration, if indicated, as they pertain to this patient. The patient has indicated understanding and acceptance of the risks and procedures discussed. PROCEDURE: Patient was brought to the lab in a fasting state. Patient was given some IV sedation. The right wrist is infiltrated with lidocaine and right femoral artery was entered using Seldinger technique. A 6-American catheter was left in place and selective coronary arteriography was performed. Patient tolerated the procedure well. TR band l was applied for hemostasis. No immediate complications were noted and patient was transferred to [facility] in a stable condition Conscious Sedation: Versed 0.5mg Fentanyl 25 g Duration 25 minutes HEMODYNAMICS: . The aortic pressure is about 110/70. The left ventricular end- diastolic pressure was not measured SELECTIVE CORONARY ARTERIOGRAPHY: LEFT MAIN: Short and divides into LAD and circumflex immediatel THE LEFT ANTERIOR DESCENDING CORONARY ARTERY: This is a good caliber vessel, the presence of stent in the midportion after the good- sized diagonal branch. There is mild in-stent stenosis which is seemed to be stable compared to the previous studies. No other significant disease THE LEFT CIRCUMFLEX AND IS CORONARY ARTERY: Is a good caliber vessel giving rise good-sized OM branch. Free of occlusive disease THE RIGHT CORONARY ARTERY: . This is a dominant vessel giving rise to good-sized PDA and PLV branches. This vessel is free of occlusive disease LEFT VENTRICULOGRAPHY: . Not performed FINAL IMPRESSION: . Stable coronary artery disease with mild in-stent stenosis involving the mid LAD. Otherwise normal coronary arteries PLAN: . Medical therapy and this factor modification PROGNOSIS: . Good
[2020-12-27 13:26] VITALS: BP 128/73; PULSE 52
== END | disposition home or self-care (01) ==
LOC: CATHCVL 05:39
PROVIDERS: ATTEND Internal Medicine Cardiovascular Disease
DX: I25.10 Atherosclerotic heart disease of native coronary artery without angina pectoris (principal); T82.855A Stenosis of coronary artery stent, initial encounter; Y83.9 Surgical procedure, unspecified as the cause of abnormal reaction of the patient, or of later complication, without mention of misadventure at the time of the procedure; I48.19 Other persistent atrial fibrillation; Z79.01 Long term (current) use of anticoagulants; E11.9 Type 2 diabetes mellitus without complications; I10 Essential (primary) hypertension; I27.20 Pulmonary hypertension, unspecified; I08.2 Rheumatic disorders of both aortic and tricuspid valves; Z82.49 Family history of ischemic heart disease and other diseases of the circulatory system; Z79.899 Other long term (current) drug therapy
CPT/HCPCS: 93454; 87635; C1894; C1769; J2250; J2001; J3010; J1644; Q9967

== ENCOUNTER 2021-08-18 11:44 | Emergency (ER) | payer MEDICARE ==
[2021-08-18 11:49] VITALS: PULSE 72
[2021-08-18] MEDS ORDERED: TRANEXAMIC ACID 1,000 MG/10 ML VIAL IRRIGATION ONE (11:57)
[2021-08-18] MEDS ORDERED: OXYMETAZOLINE 0.05% NASL SPRAY 1 SPRAY BOTTLE NASAL STA (11:57)
--- NOTE | 2021-08-18 12:30 | ED ---
General Adult HPI - General Chief complaint: ENT Stated complaint: nose bleed/blood thinner Time Seen by Provider: 08/18/21 11:55 Source: patient, RN notes reviewed Mode of arrival: ambulatory Limitations: no limitations - History of Present Illness Initial comments: 89-year-old female with a past medical history of atrial fibrillation, CAD, hypertension presents to the emergency room for a chief complaint of nosebleed. Patient has had a nosebleed for the past couple hours. She does take blood thinners. Patient states she had one last night but it resolved. Patient has no other complaints at this time including shortness of breath, chest pain, abdominal pain, nausea or vomiting, headache, or visual changes. - Related Data Home Medications Medication Instructions Recorded Confirmed Aspirin EC [Ecotrin Low Dose] 81 mg PO MOWEFR 04/12/17 08/18/21 Benazepril HCl 40 mg PO DAILY 04/12/17 08/18/21 Multivitamins, Thera [Multivitamin 1 tab PO DAILY 04/12/17 08/18/21 (formulary)] amLODIPine [Norvasc] 2.5 mg PO DAILY 04/12/17 08/18/21 Aris/D3/Mag11/Zinc/Automated Teller Manager/Loy/Bor 2 tab PO DAILY 12/22/20 08/18/21 [Caltrate 600+D Plus Tablet] Diphenox-Atrop 2.5-0.025 mg 1 tab PO BID 12/22/20 08/18/21 [Lomotil] Ferrous Sulfate [Iron (65 MG 325 mg PO DAILY 12/22/20 08/18/21 Elemental)] Furosemide [Lasix] 20 mg PO DAILY 12/22/20 08/18/21 Omeprazole [PriLOSEC] 40 mg PO DAILY 12/22/20 08/18/21 Atorvastatin [Lipitor] 20 mg PO HS 08/18/21 08/18/21 Prevident 1.1% Gel 1 applic PO BID 08/18/21 08/18/21 Rivaroxaban [Xarelto] 15 mg PO DAILY 08/18/21 08/18/21 diphenhydrAMINE [Benadryl] 25 mg PO DAILY PRN 08/18/21 08/18/21 Previous Rx's Medication Instructions Recorded Nitroglycerin Sl Tabs [Nitrostat] 0.4 mg SUBLINGUAL Q5M PRN tab 12/27/20 Cephalexin [Keflex] 500 mg PO BID 7 Days #14 cap 08/18/21 Allergies Allergy/AdvReac Type Severity Reaction Status Date / Time Penicillins AdvReac HEADACHES Verified 08/18/21 13:06 Review of Systems ROS Statement: Those systems with pertinent positive or pertinent negative responses have been documented in the HPI. ROS Other: All systems not noted in ROS Statement are negative. Past Medical History Past Medical History: Atrial Fibrillation, Coronary Artery Disease (CAD), Cancer, Hypertension Additional Past Medical History / Comment(s): skin CA with removal History of Any Multi-Drug Resistant Organisms: None Reported Past Surgical History: Heart Catheterization With Stent, Hernia Repair, Hysterectomy Past Anesthesia/Blood Transfusion Reactions: No Reported Reaction Date of Last Stent Placement:: 2007 Past Psychological History: No Psychological Hx Reported Smoking Status: Never smoker Past Alcohol Use History: None Reported Past Drug Use History: None Reported - Past Family History Mother Family Medical History: Congestive Heart Failure (CHF) Father Family Medical History: Cancer Additional Family Medical History / Comment(s): prostate cancer General Exam Limitations: no limitations General appearance: alert, in no apparent distress Head exam: Present: atraumatic Eye exam: Present: normal appearance, PERRL, EOMI. Absent: scleral icterus, conjunctival injection ENT exam: Present: normal exam, mucous membranes moist Neck exam: Present: normal inspection, full ROM. Absent: tenderness Respiratory exam: Present: normal lung sounds bilaterally. Absent: respiratory distress, wheezes Cardiovascular Exam: Present: regular rate, normal rhythm, normal heart sounds GI/Abdominal exam: Present: soft, normal bowel sounds. Absent: distended, tenderness Neurological exam: Present: alert Course Vital Signs 08/18/21 11:47 Temperature 97.3 F L Pulse Rate 72 Respiratory 20 Rate Blood Pressure 150/87 O2 Sat by Pulse 95 Oximetry Medical Decision Making - Medical Decision Making Vitals are stable. Patient is well-appearing. Patient does take Xarelto for atrial fibrillation. Patient has bleeding out of the left near. Initially tried Afrin and clamping for 20 minutes with no success. Then tried to kick same cramping with no success. Finally patient was packed with a Rhino Rocket. Balloons were inflated to 5 mL. Patient will be started on antibiotics and discharged home to follow up with ENT. Disposition Clinical Impression: Epistaxis Disposition: HOME SELF-CARE Condition: Good Instructions (If sedation given, give patient instructions): Nosebleed (ED) Additional Instructions: Please take antibiotic as directed. Follow-up with ENT. Packing must be removed in 48-72 hours. Return to the emergency room for any worsening symptoms. Prescriptions: Cephalexin [Keflex] 500 mg PO BID 7 Days #14 cap Is patient prescribed a controlled substance at d/c from ED?: No Referrals: Tahir Chavez MD [Primary Care Provider] - 1-2 days Reji Glaser DO [Doctor of Osteopathic Medicine] - 1-2 days Time of Disposition: 13:50
[2021-08-18 14:34] VITALS: BP 162/75; RESP 14; TEMP 97.2
== END 2021-08-18 14:35 | disposition home or self-care (01) ==
LOC: EC 11:44
DX: R04.0 Epistaxis (principal); I48.91 Unspecified atrial fibrillation; I25.10 Atherosclerotic heart disease of native coronary artery without angina pectoris; I10 Essential (primary) hypertension
CPT/HCPCS: 99283

== ENCOUNTER → 2022-01-04 | Outpatient (CLI) | payer MEDICARE ==
--- NOTE | 2022-01-04 17:06 | XR ---
PROCEDURE: XR sacrum coccyx - 3V DATE AND TIME: 01/04/2022 4:16 PM CLINICAL INDICATION: [facility]; M54.9, Back pain TECHNIQUE: Department protocol COMPARISON: None FINDINGS: There is no fracture or malalignment. The soft tissues are unremarkable. IMPRESSION: NO ACUTE PROCESS.
--- NOTE | 2022-01-04 17:09 | XR ---
PROCEDURE: XR lumbar spine - 3V DATE AND TIME: 01/04/2022 4:16 PM CLINICAL INDICATION: [facility]; M54.9, Back pain TECHNIQUE: Department protocol COMPARISON: None FINDINGS: There is no fracture or malalignment. Levorotoscoliosis noted. Advanced multilevel lumbar spine spondylosis changes are appreciated, as are bilateral sacral iliac j oint degenerative changes. IMPRESSION: NO ACUTE PROCESS.
== END | disposition home or self-care (01) ==
LOC: RADXRMAIN 15:40
PROVIDERS: ATTEND Nurse Practitioner Gerontology
DX: M53.3 Sacrococcygeal disorders, not elsewhere classified (principal); M47.816 Spondylosis without myelopathy or radiculopathy, lumbar region
CPT/HCPCS: 72100; 72220